=== PATIENT | female | born 1985 | race Caucasian/White ===

== ENCOUNTER → 2017-02-28 | Outpatient (CLI) | payer OTHER ==
[2017-03-01 14:03] LABS: Honeybee Venom IgE Class CLASS 0; Paper Wasp IgE <0.35 kU/L (<0.35); Paper Wasp IgE Class CLASS 0; White-Faced Hornet IgE <0.35 kU/L (<0.35); White-Faced Hornet IgE Class CLASS 0; Yellow Jacket IgE Class CLASS 0
== END | disposition home or self-care (01) ==
LOC: LABWHC1 15:52
PROVIDERS: ATTEND Allergy & Immunology
DX: T63.441A Toxic effect of venom of bees, accidental (unintentional), initial encounter (principal); J30.9 Allergic rhinitis, unspecified
CPT/HCPCS: 36415; 86003

== ENCOUNTER 2017-05-16 14:54 | Emergency (ER) | payer OTHER ==
[2017-05-16 15:16] VITALS: BP 144/87; PULSE 78; RESP 18; TEMP 98
--- NOTE | 2017-05-16 15:38 | ED ---
Upper Extremity HPI - General Chief Complaint: Extremity Injury, Upper Stated Complaint: Wrist Pain Time Seen by Provider: 05/16/17 15:19 Source: patient, RN notes reviewed Mode of arrival: ambulatory Limitations: no limitations - History of Present Illness Initial Comments: 32-year-old female presents emergency with left wrist pain. Patient states that she injured coughing elevate. Patient states that she missed the ball struck the ground. She is right-handed states that her upper hand bent when she is small. She complains of wrist pain along the ulnar aspect denies any paresthesias no weakness. Patient is right-hand dominant. - Related Data Home Medications Medication Instructions Recorded Confirmed Montelukast [Singulair] 10 mg PO HS 08/27/15 02/23/16 Albuterol Sulfate [Ventolin HFA] 1 - 2 puff INHALATION RT-Q4H PRN 02/12/1602/22 Mometasone Furoate [Asmanex] 1 puff INHALATION RT-HS 02/12/16 02/23/16 Naproxen [Naproxen] 500 mg PO BID PRN 02/12/16 02/23/16 Propranolol LA [Inderal LA] 80 mg PO HS 02/12/16 02/23/16 Omeprazole [PriLOSEC] 20 mg PO HS 02/23/16 02/23/16 SUMAtriptan SUCCINATE [Imitrex] 100 mg PO BID PRN 02/23/16 02/23/16 Previous Rx's Medication Instructions Recorded Meclizine [Antivert] 25 mg PO TID PRN #12 tab 02/23/16 Ibuprofen [Motrin] 600 mg PO Q8HR PRN #30 tab 05/16/17 Allergies Allergy/AdvReac Type Severity Reaction Status Date / Time adhesive tape Allergy Rash/Hives Verified 05/16/17 15:14 Review of Systems ROS Statement: Those systems with pertinent positive or pertinent negative responses have been documented in the HPI. ROS Other: All systems not noted in ROS Statement are negative. Past Medical History Past Medical History: Asthma Additional Past Medical History / Comment(s): migraines, hypoglycemia, varicose veins History of Any Multi-Drug Resistant Organisms: None Reported Past Surgical History: Tubal Ligation Past Anesthesia/Blood Transfusion Reactions: No Reported Reaction Past Psychological History: No Psychological Hx Reported Smoking Status: Never smoker Past Alcohol Use History: None Reported Past Drug Use History: None Reported - Past Family History Father History Unknown: Yes Family Medical History: Hypertension, Myocardial Infarction ([place]) Mother Family Medical History: Deep Vein Thrombosis (DVT), Pulmonary Embolus General Exam Limitations: no limitations General appearance: alert, in no apparent distress Respiratory exam: Present: normal lung sounds bilaterally. Absent: respiratory distress, wheezes, rales, rhonchi, stridor Cardiovascular Exam: Present: regular rate, normal rhythm, normal heart sounds. 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 Absent: motor sensory deficit Skin exam: Present: warm, dry, intact, normal color. Absent: rash Course Vital Signs 05/16/17 15:14 Temperature 98.0 F Pulse Rate 78 Respiratory 18 Rate Blood Pressure 144/87 O2 Sat by Pulse 95 Oximetry Medical Decision Making - Medical Decision Making 32-year-old female presented emergency from for left wrist injury. Patient has a left wrist sprain x-rays did not show any acute fracture. Patient be discharged with Simon wrap, Motrin. - Radiology Data Radiology results: report reviewed, image reviewed X-ray wrist no acute fracture. Disposition Clinical Impression: Left wrist sprain Disposition: HOME SELF-CARE Condition: Stable Instructions: Wrist Injury (ED) Additional Instructions: Please return to the Emergency Department if symptoms worsen or any other concerns. Prescriptions: Ibuprofen [Motrin] 600 mg PO Q8HR PRN #30 tab PRN Reason: Pain Referrals: Robert De Paz MD [Primary Care Provider] - 1-2 days Time of Disposition: 15:45
--- NOTE | 2017-05-16 15:42 | XR ---
EXAMINATION TYPE: XR wrist complete LT DATE OF EXAM: 05/16/2017 CLINICAL HISTORY: Wrist pain after golfing injury yesterday. TECHNIQUE: Frontal, lateral , scaphoid, and oblique images of the left wrist are obtained. COMPARISON: None FINDINGS: There is no acute fracture/dislocation evident in the left wrist. The joint spaces in the left wrist appear within normal limits. The overlying soft tissue appears unremarkable. IMPRESSION: There is no acute fracture or dislocation in the left wrist.
== END 2017-05-16 15:52 | disposition home or self-care (01) ==
LOC: EC 14:54
DX: S63.502A Unspecified sprain of left wrist, initial encounter (principal); J45.909 Unspecified asthma, uncomplicated; Z79.51 Long term (current) use of inhaled steroids; Z79.899 Other long term (current) drug therapy; Z91.09 Other allergy status, other than to drugs and biological substances; Z86.69 Personal history of other diseases of the nervous system and sense organs; W22.8XXA Striking against or struck by other objects, initial encounter; Y93.53 Activity, golf
CPT/HCPCS: 99283

== ENCOUNTER 2017-05-31 08:25 | Emergency (ER) | payer OTHER ==
[2017-05-31 08:45] VITALS: BP 147/70; PULSE 79; RESP 18; TEMP 98.8
--- NOTE | 2017-05-31 09:05 | ED ---
ENT HPI - General Chief complaint: Dental/Oral Stated complaint: Tooth Pain Time Seen by Provider: 05/31/17 08:48 Source: patient, RN notes reviewed Mode of arrival: ambulatory Limitations: no limitations - History of Present Illness Initial comments: 32-year-old female presents emergency Department chief complaint of right-sided dental pain, facial swelling. Patient states started this yesterday. She does have a bed to that she knows about. She states she has not seen a dentist in several years. Patient has fever, chills, neck pain, headache or dizziness. Denies any difficulty swallowing. - Related Data Home Medications Medication Instructions Recorded Confirmed Montelukast [Singulair] 10 mg PO HS 08/27/15 05/31/17 Albuterol Sulfate [Ventolin HFA] 1 - 2 puff INHALATION RT-Q4H PRN 02/12/1605/31 Mometasone Furoate [Asmanex] 1 puff INHALATION RT-HS 02/12/16 05/31/17 Naproxen [Naproxen] 500 mg PO BID PRN 02/12/16 05/31/17 Propranolol LA [Inderal LA] 80 mg PO HS 02/12/16 05/31/17 Omeprazole [PriLOSEC] 20 mg PO HS 02/23/16 05/31/17 SUMAtriptan SUCCINATE [Imitrex] 100 mg PO BID PRN 02/23/16 05/31/17 Previous Rx's Medication Instructions Recorded Meclizine [Antivert] 25 mg PO TID PRN #12 tab 02/23/16 Ibuprofen [Motrin] 600 mg PO Q8HR PRN #30 tab 05/16/17 Acetaminophen-Codeine 300-30mg 1 tab PO Q4H PRN #20 tablet 05/31/17 [Tylenol #3] Ibuprofen [Motrin] 600 mg PO Q8HR PRN #30 tab 05/31/17 Penicillin V Potassium [Pen Vee K] 500 mg PO QID #40 tablet 05/31/17 Allergies Allergy/AdvReac Type Severity Reaction Status Date / Time adhesive tape Allergy Rash/Hives Verified 05/31/17 08:50 Review of Systems ROS Statement: Those systems with pertinent positive or pertinent negative responses have been documented in the HPI. ROS Other: All systems not noted in ROS Statement are negative. Past Medical History Past Medical History: Asthma Additional Past Medical History / Comment(s): migraines, hypoglycemia, varicose veins History of Any Multi-Drug Resistant Organisms: None Reported Past Surgical History: Tubal Ligation Past Anesthesia/Blood Transfusion Reactions: No Reported Reaction Past Psychological History: No Psychological Hx Reported Smoking Status: Never smoker Past Alcohol Use History: None Reported Past Drug Use History: None Reported - Past Family History Father History Unknown: Yes Family Medical History: Hypertension, Myocardial Infarction ([place]) Mother Family Medical History: Deep Vein Thrombosis (DVT), Pulmonary Embolus General Exam Limitations: no limitations General appearance: alert, in no apparent distress Head exam: Present: atraumatic, normocephalic, normal inspection Eye exam: Present: normal appearance, PERRL, EOMI. Absent: scleral icterus, conjunctival injection, periorbital swelling ENT exam: Present: mucous membranes moist, TM's normal bilaterally, normal external ear exam. Absent: normal oropharynx (Right-sided facial swelling, there is a dental fracture and right lower aspect with no drainable abscess.) Neck exam: Present: normal inspection, full ROM. Absent: tenderness, meningismus, lymphadenopathy Respiratory exam: Present: normal lung sounds bilaterally. Absent: respiratory distress, wheezes, rales, rhonchi, stridor Cardiovascular Exam: Present: regular rate, normal rhythm, normal heart sounds. Absent: systolic murmur, diastolic murmur, rubs, gallop, clicks Course Vital Signs 05/31/17 08:43 Temperature 98.8 F Pulse Rate 79 Respiratory 18 Rate Blood Pressure 147/70 O2 Sat by Pulse 99 Oximetry Medical Decision Making - Medical Decision Making 32-year-old female presented for dental pain. Patient has had right-sided facial swelling discomfort. Concerns for dental abscess. Patient we placed on penicillin, Tylenol coating this time return parameters were discussed. She is advised that she needs to follow-up with dentist tomorrow. Disposition Clinical Impression: Fracture of tooth, Dental abscess Disposition: HOME SELF-CARE Condition: Stable Instructions: Dental Abscess (ED) Additional Instructions: Please return to the Emergency Department if symptoms worsen or any other concerns. Prescriptions: Acetaminophen-Codeine 300-30mg [Tylenol #3] 1 tab PO Q4H PRN #20 tablet PRN Reason: pain Ibuprofen [Motrin] 600 mg PO Q8HR PRN #30 tab PRN Reason: Pain Penicillin V Potassium [Pen Vee K] 500 mg PO QID #40 tablet Referrals: Robert De Paz MD [Primary Care Provider] - 1-2 days Time of Disposition: 09:04
== END 2017-05-31 09:15 | disposition home or self-care (01) ==
LOC: EC 08:25
DX: S02.5XXA Fracture of tooth (traumatic), initial encounter for closed fracture (principal); K04.7 Periapical abscess without sinus; J45.909 Unspecified asthma, uncomplicated; Z91.048 Other nonmedicinal substance allergy status; Z79.899 Other long term (current) drug therapy; X58.XXXA Exposure to other specified factors, initial encounter
CPT/HCPCS: 99282

== ENCOUNTER → 2017-12-30 | Outpatient (CLI) | payer OTHER ==
--- NOTE | 2017-12-30 23:05 | MR ---
EXAMINATION TYPE: MR brain wo/w cspine wo DATE OF EXAM: 12/30/2017 COMPARISON: Prior MRI brain February 23, 2016. Prior MRI cervical spine November 27, 2014. HISTORY: Dizzy, Blurry Vision, Left side weakness and numbness,Neck pain, since 2012 TECHNIQUE: Multiplanar, multisequence images of the brain and brainstem is performed without and with IV contras t, utilizing 8.5 mL intravenous Gadavist . Multiplanar, multisequence imaging of cervical spine is pe rformed without contrast. FINDINGS: Diffusion weighted images demonstrate no evidence of a recent infarct or other diffusion ab normality. There is no extra-axial fluid collection or significant white matter signal abnormality. The ventricular system and cisternal spaces are normal in size and appearance. The brain volume is age appropriate. Midline structures demonstrate normal morphology. The craniocervical junction appears within normal limits. Post contrast images demonstrate no abnormal enhancement. The dural venous sinuses appear pa tent. The visualized sinuses are clear and the globes are intact. No suspicious fluid signal in masto id air cells is present. IMPRESSION: Unremarkable study. No significant new or interval finding to account for patient's sympt oms. C-SPINE: FINDINGS: Sagittal images of the cervical spine show the craniocervical junction to remaining within normal limits. The cervical and upper thoracic spinal cord is normal in course, caliber, and signal. Vertebral alignment is anatomic. The vertebral body and intravertebral disk heights are normal. St able tiny posterior disc herniation C4-C5 and C5-C6 level are effacing the anterior thecal sac. Heman gioma transformation T2 level is redemonstrated. Axial images show the C2-C3 and C3-C4 levels remain within normal limits. Axial images at C4-C5 level show broad posterior disc protrusion with slightly more prominent left pa racentral/foraminal component effacing anterior thecal sac, bilateral neural foramina remain patent. Axial images at C5-C6 level shows broad-based posterior disc protrusion effacing anterior thecal sac once again with slightly more prominent left paracentral component, bilateral neural foramina remain patent. Axial images at C6-C7 and C7-T1 levels remain within normal limits. IMPRESSION: Slight worsening in disc herniations mid cervical spine.
== END | disposition home or self-care (01) ==
LOC: RADMRIMAIN 19:42
PROVIDERS: ATTEND Physician Assistant
DX: R51 Headache (principal); R42 Dizziness and giddiness; M54.2 Cervicalgia; Z91.040 Latex allergy status
CPT/HCPCS: 70553; 72141; A9581

== ENCOUNTER → 2018-03-01 | Outpatient (CLI) | payer OTHER ==
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
== END | disposition home or self-care (01) ==
LOC: RADUSWWP 15:03
PROVIDERS: ATTEND Family Medicine
DX: R10.84 Generalized abdominal pain (principal); Z91.048 Other nonmedicinal substance allergy status
CPT/HCPCS: 76856

== ENCOUNTER 2018-07-20 22:17 | Emergency (ER) | payer OTHER ==
[2018-07-20 22:30] VITALS: BP 146/94; PULSE 76; RESP 18; TEMP 98.5
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
== END 2018-07-20 23:09 | disposition home or self-care (01) ==
LOC: EC 22:17
DX: T23.102A Burn of first degree of left hand, unspecified site, initial encounter (principal); J45.909 Unspecified asthma, uncomplicated; Z79.51 Long term (current) use of inhaled steroids; Z79.899 Other long term (current) drug therapy; Z91.048 Other nonmedicinal substance allergy status; X10.1XXA Contact with hot food, initial encounter
CPT/HCPCS: 99283

== ENCOUNTER 2018-09-11 15:43 | Inpatient (IN) | payer OTHER ==
[2018-09-11] MEDS ORDERED: SODIUM CHLORIDE 0.9% 1,000 ML IV ONE (16:10)
--- NOTE | 2018-09-11 16:14 | ED ---
General Adult HPI - General Chief complaint: Chest Pain Stated complaint: SOB Time Seen by Provider: 09/11/18 15:59 Source: patient, RN notes reviewed, old records reviewed Mode of arrival: wheelchair Limitations: no limitations - History of Present Illness Initial comments: Patient is a 33-year-old female with complaints of chest pain, shortness of breath and dizziness for the past few days. Patient reports that it seemed to be worse today. Patient states that she has had a hysterectomy approximately one week ago by Dr. Coto. Patient states that she has had no significant abdominal pain. She reports that she's had a slight amount of pain with urination. She's had normal bowel habits. Patient reports that she has had a family history of blood clots but no personal history of blood clots. She is a nonsmoker. She denies any other significant medical history. - Related Data Home Medications Medication Instructions Recorded Confirmed Montelukast [Singulair] 10 mg PO HS 08/27/15 09/11/18 Albuterol Sulfate [Ventolin HFA] 1 - 2 puff INHALATION RT-Q4H PRN 02/12/1609/11 Omeprazole [PriLOSEC] 20 mg PO HS 02/23/16 09/11/18 Aspirin EC [Ecotrin Low Dose] 81 mg PO HS 07/20/18 09/11/18 Cetirizine HCl [Zyrtec] 10 mg PO HS 07/20/18 09/11/18 Cholecalciferol [Vitamin D3] 1,000 unit PO HS 07/20/18 09/11/18 Rosuvastatin [Crestor] 20 mg PO HS 07/20/18 09/11/18 Fluticasone/Salmeterol [Airduo 2 puff INHALATION RT-BID 09/11/18 09/11/18 Respiclick 113-14 Mcg] Hydrocodone/Acetaminophen [[place] 1 tab PO Q4HR PRN 09/11/18 09/11/18 5-325] Ibuprofen [Motrin] 600 mg PO Q6HR PRN 09/11/18 09/11/18 SUMAtriptan SUCCINATE [Imitrex] 100 mg PO DAILY PRN 09/11/18 09/11/18 Allergies Allergy/AdvReac Type Severity Reaction Status Date / Time adhesive tape Allergy Rash/Hives Verified 09/11/18 16:41 Review of Systems ROS Statement: Those systems with pertinent positive or pertinent negative responses have been documented in the HPI. ROS Other: All systems not noted in ROS Statement are negative. Past Medical History Past Medical History: Asthma Additional Past Medical History / Comment(s): migraines, hypoglycemia, varicose veins History of Any Multi-Drug Resistant Organisms: None Reported Past Surgical History: Hysterectomy, Tubal Ligation Past Anesthesia/Blood Transfusion Reactions: No Reported Reaction Past Psychological History: Anxiety Smoking Status: Never smoker Past Alcohol Use History: Rare Past Drug Use History: None Reported - Past Family History Father History Unknown: Yes Family Medical History: Hypertension, Myocardial Infarction (NM) Mother Family Medical History: Deep Vein Thrombosis (DVT), Pulmonary Embolus General Exam - General Exam Comments Initial Comments: 33-year-old female. Patient appears somewhat weak, fatigued.. Limitations: no limitations General appearance: alert, in no apparent distress Head exam: Present: atraumatic, normocephalic, normal inspection Eye exam: Present: normal appearance, PERRL, EOMI. Absent: scleral icterus, conjunctival injection, periorbital swelling ENT exam: Present: normal exam, mucous membranes moist Neck exam: Present: normal inspection. Absent: tenderness, meningismus, lymphadenopathy Respiratory exam: Present: normal lung sounds bilaterally. Absent: respiratory distress, wheezes, rales, rhonchi, stridor Cardiovascular Exam: Present: regular rate, normal rhythm, normal heart sounds. Absent: systolic murmur, diastolic murmur, rubs, gallop, clicks GI/Abdominal exam: Present: soft, normal bowel sounds. Absent: distended, tenderness, guarding, rebound, rigid Extremities exam: Present: normal inspection, full ROM, normal capillary refill. Absent: tenderness, pedal edema, joint swelling, calf tenderness Back exam: Present: normal inspection Neurological exam: Present: alert, oriented X3, CN II-XII intact Psychiatric exam: Present: normal affect, normal mood Course Vital Signs 09/11/18 09/11/18 15:44 19:00 Temperature 98.3 F 98.3 F Pulse Rate 101 H 87 Respiratory 18 18 Rate Blood Pressure 161/96 127/85 O2 Sat by Pulse 100 100 Oximetry - Reevaluation(s) Reevaluation #1: 09/11/18 18:45 Patient was reevaluated. Patient is continually short of breath on exertion. Patient was informed of PEs. Started on high intensity heparin. EKG Findings - EKG Comments: EKG Findings:: EKG shows normal sinus rhythm, minimal voltage criteria for LVH may be normal variant. Borderline EKG. Ventricular rate of 85 beats were minute period. Intervals 144 ms. QRS duration 86. QT QTc is 4368/437 ms. Medical Decision Making - Medical Decision Making Patient is a 33-year-old female 1 week post hysterectomy by Dr. Coto. She presents today with shortness of breath dizziness on exertion and chest pain. Patient's labwork was reviewed including EKG. EKG was negative for any acute changes. Troponin was normal. D-dimer significantly elevated at [address] chest PE was completed. There is evidence of multiple bilateral pulmonary emboli. No evidence of right heart strain. EKG BNP and troponin are all negative. Patient was started on high intensity heparin. Ultrasound was completed of the lower extremities which is negative for DVT. At this time Patient will be admitted under Dr. De Paz. After Ross, discussed the case with Dr. De Paz. - Lab Data Result diagrams: 09/11/18 16:20 09/11/18 16:20 Lab Results 09/11/18 09/11/18 09/11/18 Range/Units 16:20 16:20 16:20 WBC 7.6 (3.8-10.6) k/uL RBC 4.57 (3.80-5.40) m/uL Hgb 12.9 (11.4-16.0) gm/dL Hct 37.8 (34.0-46.0) % MCV 82.8 (80.0-100.0) fL MCH 28.2 (25.0-35.0) pg MCHC 34.0 (31.0-37.0) g/dL RDW 14.2 (11.5-15.5) % Plt Count 209 (150-450) k/uL Neutrophils % 74 % Lymphocytes % 17 % Monocytes % 4 % Eosinophils % 2 % Basophils % 1 % Neutrophils # 5.6 (1.3-7.7) k/uL Lymphocytes # 1.3 (1.0-4.8) k/uL Monocytes # 0.3 (0-1.0) k/uL Eosinophils # 0.2 (0-0.7) k/uL Basophils # 0.1 (0-0.2) k/uL PT (9.0-12.0) sec INR (<1.2) APTT (22.0-30.0) sec D-Dimer (<0.60) mg/L FEU Sodium 141 (137-145) mmol/L Potassium 3.7 (3.5-5.1) mmol/L Chloride 106 (98-107) mmol/L Carbon Dioxide 27 (22-30) mmol/L Anion Gap 8 mmol/L BUN 10 (7-17) mg/dL Creatinine 0.63 (0.52-1.04) mg/dL Est GFR (CKD-EPI)AfAm >90 (>60 ml/min/1.73 sqM) Est GFR (CKD-EPI)NonAf >90 (>60 ml/min/1.73 sqM) Glucose 90 (74-99) mg/dL Calcium 9.9 (8.4-10.2) mg/dL Magnesium 1.8 (1.6-2.3) mg/dL Total Bilirubin 0.6 (0.2-1.3) mg/dL AST 24 (14-36) U/L ALT 25 (9-52) U/L Alkaline Phosphatase 61 (38-126) U/L Total Creatine Kinase 52 (30-135) U/L CK-MB (CK-2) <0.2 (0.0-2.4) ng/mL CK-MB (CK-2) Rel Index Troponin I <0.012 (0.000-0.034) ng/mL NT-Pro-B Natriuret Pep pg/mL Total Protein 7.3 (6.3-8.2) g/dL Albumin 4.5 (3.5-5.0) g/dL Urine Color Urine Appearance (Clear) Urine pH (5.0-8.0) Ur Specific [place] (1.001-1.035) Urine Protein (Negative) Urine Glucose (UA) (Negative) Urine Ketones (Negative) Urine Blood (Negative) Urine Nitrite (Negative) Urine Bilirubin (Negative) Urine Urobilinogen (<2.0) mg/dL Ur Leukocyte Esterase (Negative) 09/11/18 09/11/18 09/11/18 Range/Units 16:20 16:20 18:45 WBC (3.8-10.6) k/uL RBC (3.80-5.40) m/uL Hgb (11.4-16.0) gm/dL Hct (34.0-46.0) % MCV (80.0-100.0) fL MCH (25.0-35.0) pg MCHC (31.0-37.0) g/dL RDW (11.5-15.5) % Plt Count (150-450) k/uL Neutrophils % % Lymphocytes % % Monocytes % % Eosinophils % % Basophils % % Neutrophils # (1.3-7.7) k/uL Lymphocytes # (1.0-4.8) k/uL Monocytes # (0-1.0) k/uL Eosinophils # (0-0.7) k/uL Basophils # (0-0.2) k/uL PT 9.8 (9.0-12.0) sec INR 0.9 (<1.2) APTT 22.3 (22.0-30.0) sec D-Dimer 7.57 H (<0.60) mg/L FEU Sodium (137-145) mmol/L Potassium (3.5-5.1) mmol/L Chloride (98-107) mmol/L Carbon Dioxide (22-30) mmol/L Anion Gap mmol/L BUN (7-17) mg/dL Creatinine (0.52-1.04) mg/dL Est GFR (CKD-EPI)AfAm (>60 ml/min/1.73 sqM) Est GFR (CKD-EPI)NonAf (>60 ml/min/1.73 sqM) Glucose (74-99) mg/dL Calcium (8.4-10.2) mg/dL Magnesium (1.6-2.3) mg/dL Total Bilirubin (0.2-1.3) mg/dL AST (14-36) U/L ALT (9-52) U/L Alkaline Phosphatase (38-126) U/L Total Creatine Kinase (30-135) U/L CK-MB (CK-2) (0.0-2.4) ng/mL CK-MB (CK-2) Rel Index Troponin I (0.000-0.034) ng/mL NT-Pro-B Natriuret Pep 56 pg/mL Total Protein (6.3-8.2) g/dL Albumin (3.5-5.0) g/dL Urine Color Yellow Urine Appearance Clear (Clear) Urine pH 7.0 (5.0-8.0) Ur Specific [place] 1.012 (1.001-1.035) Urine Protein Negative (Negative) Urine Glucose (UA) Negative (Negative) Urine Ketones Negative (Negative) Urine Blood Negative (Negative) Urine Nitrite Negative (Negative) Urine Bilirubin Negative (Negative) Urine Urobilinogen <2.0 (<2.0) mg/dL Ur Leukocyte Esterase Negative (Negative) - Radiology Data Radiology results: report reviewed Chest x-ray is normal. No changes. CT of the chest shows multiple bilateral lower lobar pulmonary emboli more in the left side. This is a change compared old exam. The exam was discussed with myself at 6 PM. Ultrasound Doppler lower extremities bilaterally is negative for DVT. Disposition Clinical Impression: Bilateral pulmonary embolism Disposition: ADMITTED IP TO THIS [facility] Condition: Stable Is patient prescribed a controlled substance at d/c from ED?: No Referrals: Robert De Paz MD [Primary Care Provider] - 1-2 days Time of Disposition: 19:44
[2018-09-11 16:32] LABS: Basophils # (A) 0.1 k/uL (0-0.2); Basophils % (A) 1 %; Eosinophils # (A) 0.2 k/uL (0-0.7); Eosinophils % (A) 2 %; HCT 37.8 % (34.0-46.0); HGB 12.9 gm/dL (11.4-16.0); Lymphocytes # (A) 1.3 k/uL (1.0-4.8); Lymphocytes % (A) 17 %; MCH 28.2 pg (25.0-35.0); MCV 82.8 fL (80.0-100.0); Monocytes # (A) 0.3 k/uL (0-1.0); Monocytes % (A) 4 %; Neutrophils # (A) 5.6 k/uL (1.3-7.7); Neutrophils % (A) 74 %; Platelet Count 209 k/uL (150-450); RBC 4.57 m/uL (3.80-5.40); RDW 14.2 % (11.5-15.5); WBC 7.6 k/uL (3.8-10.6)
[2018-09-11 16:42] LABS: ALT 25 U/L (9-52); AST 24 U/L (14-36); Albumin 4.5 g/dL (3.5-5.0); Alkaline Phosphatase 61 U/L (38-126); Anion Gap 8 mmol/L; Blood Urea Nitrogen 10 mg/dL (7-17); Calcium 9.9 mg/dL (8.4-10.2); Carbon Dioxide 27 mmol/L (22-30); Chloride 106 mmol/L (98-107); Glucose 90 mg/dL (74-99); Magnesium 1.8 mg/dL (1.6-2.3); Potassium 3.7 mmol/L (3.5-5.1); Sodium 141 mmol/L (137-145); Total Bilirubin 0.6 mg/dL (0.2-1.3); Total Protein 7.3 g/dL (6.3-8.2)
[2018-09-11 16:43] LABS: Creatine Kinase 52 U/L (30-135)
[2018-09-11 16:50] LABS: INR 0.9 (<1.2); Partial Thromboplastin Time 22.3 sec (22.0-30.0); Prothrombin Time 9.8 sec (9.0-12.0)
[2018-09-11 16:56] LABS: Creatine Kinase MB <0.2 ng/mL (0.0-2.4); Troponin I <0.012 ng/mL (0.000-0.034)
--- NOTE | 2018-09-11 16:56 | XR ---
EXAMINATION TYPE: XR chest 2V DATE OF EXAM: 09/11/2018 COMPARISON: 02/12/2016 HISTORY: Chest pain TECHNIQUE: Frontal and lateral views of the chest are obtained. FINDINGS: Heart and mediastinum are normal. Lungs are clear. Diaphragm is normal. Bony thorax appear s normal. IMPRESSION: Normal chest. No change.
[2018-09-11 17:00] LABS: D-Dimer 7.57 mg/L FEU (<0.60)
[2018-09-11] MEDS ORDERED: HEPARIN SODIUM,PORCINE 5,000 UNIT/ML 1 ML VIAL IV PRN (18:01)
[2018-09-11] MEDS ORDERED: HEPARIN SODIUM,PORCINE 10,000 UNIT/ML 1 ML VIAL IV ONE (18:01)
--- NOTE | 2018-09-11 18:05 | CT ---
EXAMINATION TYPE: CT chest angio for PE DATE OF EXAM: 09/11/2018 COMPARISON: 08/27/2015 HISTORY: Shortness of breath. Post Op hysterectomy [address] DLP: 394.6 mGycm Automated exposure control for dose reduction was used. CONTRAST: CT Chest for pulmonary embolism performed with with IV Contrast, patient injected with 100 mL of Isov ue 370. There are 3-D post processed images. FINDINGS: There is subsegmental atelectasis at the right posterior lung base. Heart size is normal. There is no pericardial effusion. Lungs are clear of consolidation. There is no evidence of a pulmonary mass. There is no mediastinal adenopathy. There is no sign of aortic aneurysm or dissection. There are mult iple filling defects in the left lower lobe pulmonary artery. There are filling defects in the right lower lobe posterior basal segment pulmonary artery. The thoracic vertebra appear intact. I see no bony destructive process. Heart size is normal without evidence of right ventricle enlargement or septal deviation. IMPRESSION: Multiple bilateral lower lobe pulmonary emboli and more on the left side. This is a change compared t o old exam. This exam was discussed with the emergency room PA at 6:00 PM.
[2018-09-11 19:02] LABS: Appearance,Urine Clear (Clear); Bilirubin,Urine Negative (Negative); Blood,Urine Negative (Negative); Color,Urine Yellow; Glucose,Urine (UA) Negative (Negative); Ketones,Urine Negative (Negative); Leukocyte Esterase,Urine Negative (Negative); Nitrite,Urine Negative (Negative); Protein,Urine Negative (Negative); Specific Gravity,Urine 1.012 (1.001-1.035); Urobilinogen,Urine <2.0 mg/dL (<2.0)
[2018-09-11] MEDS: HEPARIN SOD,PORK IN 0.45% NACL 25,000 UNIT in 0.45% NACL 1 250ML.BAG IV SCH (19:05)
[2018-09-11] MEDS: SODIUM CHLORIDE 0.9% 1,000 ML IV SCH (19:12)
--- NOTE | 2018-09-11 19:24 | US ---
EXAMINATION TYPE: US venous doppler duplex LE BI DATE OF EXAM: 09/11/2018 6:14 PM COMPARISON: NONE CLINICAL HISTORY: Pain. PE SIDE PERFORMED: Bilateral TECHNIQUE: The lower extremity deep venous system is examined utilizing real time linear array sonog nael with graded compression, doppler sonography and color-flow sonography. VESSELS IMAGED: External Iliac Vein (EIV) Common Femoral Vein Deep Femoral Vein Greater Saphenous Vein * Femoral Vein Popliteal Vein Small Saphenous Vein * Proximal Calf Veins (* superficial vessels) Right Leg: Negative for DVT Left Leg: Negative for DVT No evidence of DVT bilateral legs. IMPRESSION: Normal bilateral leg duplex venous sonogram.
[2018-09-11] MEDS ORDERED: IBUPROFEN 400 MG TAB PO PRN (19:45)
[2018-09-11] MEDS ORDERED: ACETAMINOPHEN TAB 325 MG TAB PO PRN (19:45)
[2018-09-11] MEDS ORDERED: ONDANSETRON 4 MG/2 ML VIAL IVP PRN (19:45)
[2018-09-11] MEDS ORDERED: NALOXONE 0.4 MG/ML 1 ML VIAL IV PRN (19:45)
[2018-09-11 21:02] VITALS: BMI 33.6
[2018-09-11] MEDS: MORPHINE SULFATE 4 MG/ML SYRINGE IV PRN (21:17)
[2018-09-11] MEDS ORDERED: SUMAtriptan SUCCINATE 50 MG TAB PO PRN (21:54)
[2018-09-11] MEDS ORDERED: ALBUTEROL NEBULIZED 2.5 MG/3 ML INHALATION PRN (21:54)
[2018-09-11] MEDS: PANTOPRAZOLE 40 MG TABLET PO SCH (22:52)
[2018-09-11] MEDS: VERAPAMIL SR 120 MG TABLET.ER PO SCH (22:52)
[2018-09-11] MEDS: MONTELUKAST 10 MG TAB PO SCH (22:52)
[2018-09-11] MEDS: LORATADINE 10 MG TAB PO SCH (22:52)
[2018-09-11] MEDS: Acetaminophen-Codeine 300-30mg TAB PO PRN (22:57)
[2018-09-12] MEDS: MORPHINE SULFATE 4 MG/ML SYRINGE IV PRN ×2 (02:11→20:57)
[2018-09-12] MEDS: SODIUM CHLORIDE 0.9% 1,000 ML IV SCH ×3 (02:13→22:11)
[2018-09-12] MEDS: Acetaminophen-Codeine 300-30mg TAB PO PRN (08:52)
[2018-09-12] MEDS ORDERED: PANTOPRAZOLE 40 MG/10 ML VIAL IV SCH (09:00)
[2018-09-12] MEDS: FLUTICASONE INHALATION SCH (09:16)
[2018-09-12] MEDS: SALMETEROL INHALATION SCH (09:16)
[2018-09-12 09:36] LABS: Basophils % (A) 1 %; Eosinophils # (A) 0.3 k/uL (0-0.7); Eosinophils % (A) 4 %; HCT 34.4 % (34.0-46.0); HGB 11.5 gm/dL (11.4-16.0); Lymphocytes # (A) 1.7 k/uL (1.0-4.8); Lymphocytes % (A) 29 %; MCH 28.3 pg (25.0-35.0); MCHC 33.3 g/dL (31.0-37.0); MCV 84.8 fL (80.0-100.0); Mean Platelet Volume 6.8; Monocytes # (A) 0.3 k/uL (0-1.0); Monocytes % (A) 4 %; Neutrophils # (A) 3.6 k/uL (1.3-7.7); Neutrophils % (A) 60 %; Platelet Count 206 k/uL (150-450); RBC 4.05 m/uL (3.80-5.40); RDW 14.5 % (11.5-15.5); WBC 5.9 k/uL (3.8-10.6)
[2018-09-12] MEDS ORDERED: IBUPROFEN 600 MG TAB PO PRN (11:52)
[2018-09-12] MEDS: HEPARIN SOD,PORK IN 0.45% NACL 25,000 UNIT in 0.45% NACL 1 250ML.BAG IV SCH (12:34)
--- NOTE | 2018-09-12 13:35 | PN ---
PROGRESS NOTE DATE OF SERVICE: 09/12/2018 CHIEF COMPLAINT: Bilateral pulmonary emboli. HISTORY OF PRESENT ILLNESS: This lady is doing better. She is much less short of breath. PHYSICAL EXAM: Breath sounds are fairly good on both sides with no rales or rhonchi. The cardiac exam is normal. The legs are normal. IMPRESSION: Status post bilateral pulmonary emboli. PLAN: Continue with heparin at this time. MMODL / IJN: [id number] /
--- NOTE | 2018-09-12 15:06 | HP ---
HISTORY AND PHYSICAL ADMITTING SUMMARY: CHIEF COMPLAINT: Shortness of breath and chest discomfort. HISTORY OF PRESENT ILLNESS: This is the first known admission for this 33-year-old white female. About 3 weeks ago, she underwent a hysterectomy (elsewhere). In the last day or 2, she started with increasing shortness of breath with some dizziness and some tightness in the chest. She had no fever, chills, pleurisy, hemoptysis, but she came into the emergency room, where D-dimer is elevated. She had bilateral pulmonary emboli. REVIEW OF SYSTEMS: She has had no other complaints or problems. She has had no palpitations, syncope, orthopnea, cancer. past surgical history, family history, personal and social histories are all otherwise unremarkable and noncontributory other than hysterectomy. She has had tubal ligation. She is on omeprazole, Zyrtec, Crestor, aspirin, Symbicort and Crestor, there is also singular. She does not smoke. She is not allergic to any medication. PHYSICAL EXAM: Blood pressure 120/80 with a pulse of 104, respirations of 40 and she is afebrile. GENERAL: She appeared to be slightly pale, overweight, in no acute distress. Skin was dry and lymph nodes are not enlarged. Head, ears, eyes, nose, mouth, and throat were normal. Neck veins are not distended. Thyroid is not enlarged. Chest is clear. No rales, rhonchi or rubs. Cardiac exam is normal. Abdomen is soft, nontender. EXTREMITIES: Normal. Neurologically, she is intact. IMPRESSION: Bilateral pulmonary emboli. PLAN: 1. Bed rest. 2. IV fluids. 3. Heparin. 4. Anticoagulate for 6 months. MMODL / IJN: [id number] /
[2018-09-12] MEDS: ASPIRIN 81 MG PO SCH (20:08)
--- NOTE | 2018-09-12 20:41 | US ---
EXAMINATION TYPE: US pelvic complete DATE OF EXAM: 09/12/2018 COMPARISON: NONE CLINICAL HISTORY: left sided abdominal pain post hysterectomy day 6. Patient had partial hysterectomy x6 days ago pain. Has a PE on blood thinners past a blood clot vaginally. TECHNIQUE: Transabdominal (TA). Transabdominal sonographic images of the pelvis were acquired. : EXAM MEASUREMENTS: Uterus: Surgically absent cm Endometrial Stripe: Surgically absent cm Right Ovary: 2.9 x 2.1 x 2.6 cm Left Ovary: 2.9 x 1.7 x 2.3 cm 1. Uterus: Surgically absent 2. Endometrium: Surgically absent 3. Right Ovary: Follicle seen. 4. Left Ovary: Follicle sen. 5. Bilateral Adnexa: wnl 6. Posterior cul-de-sac: wnl IMPRESSION: Hysterectomy. No solid or cystic pelvic mass identified. No free fluid.
[2018-09-12 20:49] LABS: Basophils # (A) 0.1 k/uL (0-0.2); Basophils % (A) 1 %; Eosinophils # (A) 0.2 k/uL (0-0.7); Eosinophils % (A) 4 %; HCT 36.2 % (34.0-46.0); HGB 11.7 gm/dL (11.4-16.0); Lymphocytes # (A) 1.5 k/uL (1.0-4.8); Lymphocytes % (A) 24 %; MCH 27.4 pg (25.0-35.0); MCHC 32.3 g/dL (31.0-37.0); Mean Platelet Volume 6.3; Monocytes # (A) 0.3 k/uL (0-1.0); Monocytes % (A) 4 %; Neutrophils # (A) 4.1 k/uL (1.3-7.7); Neutrophils % (A) 66 %; Platelet Count 200 k/uL (150-450); RBC 4.27 m/uL (3.80-5.40); RDW 14.3 % (11.5-15.5); WBC 6.2 k/uL (3.8-10.6)
[2018-09-12] MEDS: LORATADINE 10 MG TAB PO SCH (20:57)
[2018-09-12] MEDS: PANTOPRAZOLE 40 MG TABLET PO SCH (20:57)
[2018-09-12] MEDS: VERAPAMIL SR 120 MG TABLET.ER PO SCH (20:57)
[2018-09-12] MEDS: MONTELUKAST 10 MG TAB PO SCH (20:57)
[2018-09-13] MEDS: HEPARIN SOD,PORK IN 0.45% NACL 25,000 UNIT in 0.45% NACL 1 250ML.BAG IV SCH ×2 (01:49→19:55)
[2018-09-13] MEDS: Acetaminophen-Codeine 300-30mg TAB PO PRN ×2 (04:40→17:30)
--- NOTE | 2018-09-13 05:47 | P.OBCN ---
History of Present Illness Consult date: 09/13/18 Requesting physician: Robert De Paz Reason for consult: other (Vaginal bleeding, 9 days postop from hysterectomy) Chief complaint: Shortness of breath, incidental vaginal bleeding History of present illness: This is a 33-year-old female 4 para 4 who recently had a laparoscopic hysterectomy with Dr. Coto at [facility] on 09/04/2018. She was admitted with bilateral pulmonary embolism and was started on heparin. After starting the heparin, she passed a egg-sized blood clot vaginally and did have some pinkish watery discharge following that. She also had some increased abdominal cramping at that time. Currently she denies any vaginal bleeding or pain in her lower abdomen. She is scheduled to see Dr. Coto tomorrow for a postoperative check. Review of Systems Gastrointestinal: Denies abdominal pain Genitourinary: Reports abnormal vaginal bleeding (No current vaginal bleeding), Denies pelvic pain Past Medical History Past Medical History: Asthma Additional Past Medical History / Comment(s): migraines, hypoglycemia, varicose veins History of Any Multi-Drug Resistant Organisms: None Reported Past Surgical History: Hysterectomy, Tubal Ligation Past Anesthesia/Blood Transfusion Reactions: No Reported Reaction Smoking Status: Never smoker - Past Family History Father History Unknown: Yes Family Medical History: Hypertension, Myocardial Infarction (MS) Mother Family Medical History: Deep Vein Thrombosis (DVT), Pulmonary Embolus Medications and Allergies Home Medications Medication Instructions Recorded Confirmed Type Montelukast [Singulair] 10 mg PO HS 08/27/15 09/11/18 History Albuterol Sulfate [Ventolin HFA] 1 - 2 puff INHALATION RT-Q4H PRN 02/12/1609/11 History Omeprazole [PriLOSEC] 20 mg PO HS 02/23/16 09/11/18 History Aspirin EC [Ecotrin Low Dose] 81 mg PO HS 07/20/18 09/11/18 History Cetirizine HCl [Zyrtec] 10 mg PO HS 07/20/18 09/11/18 History Cholecalciferol [Vitamin D3] 1,000 unit PO HS 07/20/18 09/11/18 History Rosuvastatin [Crestor] 20 mg PO HS 07/20/18 09/11/18 History Fluticasone/Salmeterol [Airduo 2 puff INHALATION RT-BID 09/11/18 09/11/18 History Respiclick 113-14 Mcg] Hydrocodone/Acetaminophen [[place] 1 tab PO Q4HR PRN 09/11/18 09/11/18 History 5-325] Ibuprofen [Motrin] 600 mg PO Q6HR PRN 09/11/18 09/11/18 History SUMAtriptan SUCCINATE [Imitrex] 100 mg PO DAILY PRN 09/11/18 09/11/18 History Verapamil HCl [[place]] 120 mg PO HS 09/11/18 09/11/18 History Allergies Allergy/AdvReac Type Severity Reaction Status Date / Time adhesive tape Allergy Rash/Hives Verified 09/11/18 16:41 Exam Osteopathic Statement: *. No significant issues noted on an osteopathic structural exam other than those noted in the History and Physical/Consult. Vital Signs Temp Pulse Pulse Resp BP Pulse Ox 09/13/18 04:00 97.7 F 83 18 114/64 97 09/13/18 03:59 18 09/13/18 00:00 85 18 127/85 98 09/12/18 21:12 84 09/12/18 21:05 84 99 09/12/18 20:00 97.5 F L 83 18 136/93 99 09/12/18 16:10 153/93 09/12/18 16:00 97.5 F L 73 18 170/96 96 09/12/18 12:09 97.6 F 79 18 118/79 97 09/12/18 12:00 18 09/12/18 11:15 97.5 F L 73 18 118/72 96 09/12/18 08:55 16 09/12/18 08:21 98 F 84 17 122/77 98 09/12/18 08:00 17 Intake and Output 09/12/18 09/12/18 09/13/18 14:59 22:59 06:59 Intake Total 828.857 240 Output Total 800 Balance 828.857 -560 Intake: Intake, IV Titration 126.857 Amount Heparin Sod,Pork in 0.45% 126.857 NaCl 25,000 unit In 0.45 % NaCl 1 250ml.bag @ 18 UNITS/KG/HR 16 mls/hr IV .[id number] Rx#: [id number] Oral 702 240 Output: Urine 800 Other: # Voids 1 Exam deferred since she is no longer bleeding or having pain Results Result Diagrams: 09/12/18 20:19 09/11/18 16:20 Abnormal Lab Results - Last 24 Hours (Table) 09/12/18 Range/Units 09:10 APTT 53.8 H (22.0-30.0) sec Comments: Pelvic ultrasound showed no free fluid and normal ovaries. Assessment and Plan (1) Postoperative vaginal bleeding following genitourinary procedure Current Visit: Yes Status: Acute Code(s): N99.820 - POSTPROC HEMOR OF A SYS ORG FOLLOWING A SYS PROCEDURE SNOMED Code(s): 422106261 (2) Bilateral pulmonary embolism Current Visit: Yes Status: Acute Code(s): I26.99 - OTHER PULMONARY EMBOLISM WITHOUT ACUTE COR PULMONALE SNOMED Code(s): 96568053 Plan: Advised her that the bleeding was most likely due to some postoperative blood clot sitting in her lower abdomen and the heparin then turned blood enough that the clot passed through the vaginal cuff. Since her ultrasound shows no current free fluid and she is no longer bleeding, no further intervention is needed at this time. I have instructed her to follow up with Dr. Coto as scheduled. If any change in status while she is still admitted, please reconsult.
[2018-09-13 06:12] LABS: Basophils # (A) 0.1 k/uL (0-0.2); Basophils % (A) 1 %; Eosinophils # (A) 0.3 k/uL (0-0.7); Eosinophils % (A) 3 %; HCT 38.1 % (34.0-46.0); Lymphocytes % (A) 23 %; MCH 26.6 pg (25.0-35.0); MCHC 31.4 g/dL (31.0-37.0); MCV 84.7 fL (80.0-100.0); Mean Platelet Volume 6.3; Monocytes # (A) 0.3 k/uL (0-1.0); Monocytes % (A) 4 %; Neutrophils # (A) 5.8 k/uL (1.3-7.7); Neutrophils % (A) 67 %; Platelet Count 260 k/uL (150-450); RDW 14.4 % (11.5-15.5); WBC 8.7 k/uL (3.8-10.6)
[2018-09-13] MEDS: RIVAROXABAN 15 MG TAB PO SCH (18:10)
[2018-09-13] MEDS: SALMETEROL INHALATION SCH ×2 (19:51→19:52)
[2018-09-13] MEDS: FLUTICASONE INHALATION SCH ×2 (19:51→19:52)
[2018-09-13] MEDS: SODIUM CHLORIDE 0.9% 1,000 ML IV SCH ×2 (19:52→19:53)
[2018-09-13] MEDS: MONTELUKAST 10 MG TAB PO SCH (20:05)
[2018-09-13] MEDS: VERAPAMIL SR 120 MG TABLET.ER PO SCH (20:05)
[2018-09-13] MEDS: LORATADINE 10 MG TAB PO SCH (20:05)
[2018-09-13] MEDS: PANTOPRAZOLE 40 MG TABLET PO SCH (20:05)
[2018-09-13] MEDS: ASPIRIN 81 MG PO SCH (20:14)
[2018-09-14] MEDS: MORPHINE SULFATE 4 MG/ML SYRINGE IV PRN (00:06)
[2018-09-14] MEDS: SALMETEROL INHALATION SCH (00:50)
[2018-09-14] MEDS: FLUTICASONE INHALATION SCH (00:50)
[2018-09-14 06:04] VITALS: TEMP 97.9
[2018-09-14 06:33] LABS: Basophils # (A) 0.1 k/uL (0-0.2); Basophils % (A) 1 %; Eosinophils # (A) 0.3 k/uL (0-0.7); Eosinophils % (A) 4 %; HCT 35.8 % (34.0-46.0); HGB 11.4 gm/dL (11.4-16.0); Lymphocytes # (A) 1.6 k/uL (1.0-4.8); Lymphocytes % (A) 25 %; MCH 26.9 pg (25.0-35.0); MCHC 31.8 g/dL (31.0-37.0); MCV 84.7 fL (80.0-100.0); Mean Platelet Volume 6.9; Monocytes # (A) 0.3 k/uL (0-1.0); Monocytes % (A) 5 %; Neutrophils # (A) 4.1 k/uL (1.3-7.7); Neutrophils % (A) 64 %; Platelet Count 224 k/uL (150-450); RBC 4.23 m/uL (3.80-5.40); RDW 14.5 % (11.5-15.5); WBC 6.3 k/uL (3.8-10.6)
[2018-09-14] MEDS: RIVAROXABAN 15 MG TAB PO SCH (06:46)
[2018-09-14 08:04] VITALS: RESP 16
[2018-09-14 12:31] VITALS: BP 131/83; PULSE 81
--- NOTE | 2018-09-14 17:32 | PN ---
PROGRESS NOTE CHIEF COMPLAINT: Pulmonary emboli. HISTORY OF PRESENT ILLNESS: This lady is doing a little bit better and is a little bit less short of breath. PHYSICAL EXAMINATION: Breath sounds are fairly clear on both sides and cardiac exam is normal. Abdomen is soft, nontender. IMPRESSION: 1. Status post pulmonary emboli. 2. Vaginal bleeding. PLAN: She has been seen by Gynecology and she has had no further bleeding. We are trying to see if we can get her set up with one of the novel anticoagulants so that she can be discharged tomorrow. MMODL / IJN: [id number] /
--- NOTE | 2018-09-14 19:59 | DS ---
DISCHARGE SUMMARY CHIEF COMPLAINT: Shortness of breath. HISTORY OF PRESENT ILLNESS AND PHYSICAL EXAM: Details of this lady's history and physical can be found in the initial workup. LABORATORY STUDIES: While she was in the hospital, she had laboratory studies, details of which can be found in the laboratory section of chart. COURSE IN HOSPITAL: After admission, she was placed on bedrest, started on intravenous fluids and placed on heparin. Shortness of breath improved. She had no other hemodynamic problems, fever or chills, etc. It was felt she could go home on the and she will be sent home on rivaroxaban 50 mg twice a day. We will see her in the office in few days. FINAL DIAGNOSES: 1. Bilateral pulmonary emboli. 2. Status post hysterectomy. 3. Vaginal bleeding. OPERATIONS: None. CONSULTATION: Gynecology. She is improved. MMELIEZERL / LOIN: [id number] /
== END 2018-09-14 13:18 | disposition home or self-care (01) | DRG 176 ==
LOC: EC 15:43 → 3SCARD 19:58
PROVIDERS: ADMIT Family Medicine; ATTEND Family Medicine
DX: I26.99 Other pulmonary embolism without acute cor pulmonale (principal); N99.820 Postprocedural hemorrhage of a genitourinary system organ or structure following a genitourinary system procedure; J45.909 Unspecified asthma, uncomplicated; Z79.899 Other long term (current) drug therapy; Z82.49 Family history of ischemic heart disease and other diseases of the circulatory system; Z90.710 Acquired absence of both cervix and uterus; E66.3 Overweight; Z68.33 Body mass index [BMI] 33.0-33.9, adult; Z79.82 Long term (current) use of aspirin; Z79.51 Long term (current) use of inhaled steroids
CPT/HCPCS: 36415; 71046; 71275; 76856; 80053; 81003; 82550; 82553; 83735; 83880; 84484; 85025; 85379; 85610; 85730; 93005; 93970; 94640; 94760; 96361; 96365; 96366; 96376; 99285

== ENCOUNTER 2018-09-29 10:48 | Emergency (ER) | payer OTHER ==
[2018-09-29 10:54] VITALS: RESP 20; TEMP 98.3
[2018-09-29] MEDS ORDERED: diphenhydrAMINE 50 MG/ML 1 ML VIAL IVP STA (11:28)
--- NOTE | 2018-09-29 11:37 | ED ---
Allergic Reaction HPI - General Chief complaint: Allergic Reaction Stated complaint: poss allergic rxn Time Seen by Provider: 09/29/18 11:11 Source: patient Mode of arrival: ambulatory Limitations: no limitations - History of Present Illness Initial Comments: This is a 33-year-old female with a history of bilateral pulmonary emboli for she is on anticoagulants who states she had recently her verapamil prescription increased from 120 mg a day to 250 mg a day additionally she had chlorthalidone added to her medication list 4 days ago she states after taking that he has some numbness and redness to her face when she woke up this morning and later get worse. She states also she has some dizziness weakness headache increased thirst since starting his medication. She states she started on medication for days ago neck states she felt slightly dizzy that that she was fine and then since that she's had these other symptoms. She has any fevers chills or sweats she has had slight cough no overt chest pain no palpitations MD Complaint: allergic reaction, facial swelling - Related Data Home Medications Medication Instructions Recorded Confirmed Montelukast [Singulair] 10 mg PO HS 08/27/15 09/29/18 Omeprazole [PriLOSEC] 20 mg PO HS 02/23/16 09/29/18 Cetirizine HCl [Zyrtec] 10 mg PO HS 07/20/18 09/29/18 Cholecalciferol [Vitamin D3] 1,000 unit PO HS 07/20/18 09/29/18 Fluticasone/Salmeterol [Airduo 2 puff INHALATION RT-BID 09/11/18 09/29/18 Respiclick 113-14 Mcg] Chlorthalidone [Hygroton] 25 mg PO HS 09/29/18 09/29/18 Verapamil Sr [Isoptin Sr] 240 mg PO HS 09/29/18 09/29/18 Previous Rx's Medication Instructions Recorded Rivaroxaban [Xarelto] 15 mg PO BID-W/MEALS #30 tab 09/14/18 Magnesium 200 mg PO DAILY #15 tablet 09/29/18 Potassium Chloride ER [K-Dur 20] 20 meq PO DAILY #15 tab 09/29/18 predniSONE 20 mg PO BID #10 tab 09/29/18 Allergies Allergy/AdvReac Type Severity Reaction Status Date / Time adhesive tape Allergy Rash/Hives Verified 09/29/18 11:35 Review of Systems ROS Statement: Those systems with pertinent positive or pertinent negative responses have been documented in the HPI. ROS Other: All systems not noted in ROS Statement are negative. Past Medical History Past Medical History: Asthma, Hypertension Additional Past Medical History / Comment(s): migraines, hypoglycemia, varicose veins History of Any Multi-Drug Resistant Organisms: None Reported Past Surgical History: Hysterectomy, Tubal Ligation Past Anesthesia/Blood Transfusion Reactions: No Reported Reaction Past Psychological History: Anxiety Smoking Status: Never smoker Past Alcohol Use History: None Reported Past Drug Use History: None Reported - Past Family History Father History Unknown: Yes Family Medical History: Hypertension, Myocardial Infarction (VT) Mother Family Medical History: Deep Vein Thrombosis (DVT), Pulmonary Embolus General Exam - General Exam Comments Initial Comments: This is a well-developed well-nourished awake alert oriented 3 female Limitations: no limitations General appearance: alert, anxious Head exam: Present: atraumatic, normocephalic, normal inspection Eye exam: Present: normal appearance, PERRL, EOMI. Absent: scleral icterus, conjunctival injection, periorbital swelling ENT exam: Present: normal exam, normal oropharynx, mucous membranes moist, other (77 reveals erythema to the face) Neck exam: Present: normal inspection. Absent: tenderness, meningismus, lymphadenopathy Respiratory exam: Present: normal lung sounds bilaterally. Absent: respiratory distress, wheezes, rales, rhonchi, stridor Cardiovascular Exam: Present: regular rate, normal rhythm, normal heart sounds. Absent: systolic murmur, diastolic murmur, rubs, gallop, clicks GI/Abdominal exam: Present: soft, normal bowel sounds. Absent: distended, tenderness, guarding, rebound, rigid Extremities exam: Present: normal inspection, full ROM, normal capillary refill. Absent: tenderness, pedal edema, joint swelling, calf tenderness Back exam: Present: normal inspection Neurological exam: Present: alert, oriented X3, CN II-XII intact Psychiatric exam: Present: normal affect, normal mood Skin exam: Present: warm, dry, intact, normal color. Absent: rash Course Vital Signs 09/29/18 09/29/18 10:52 12:30 Temperature 98.3 F Pulse Rate 93 105 H Respiratory 20 20 Rate Blood Pressure 116/84 117/82 O2 Sat by Pulse 99 99 Oximetry Medical Decision Making - Medical Decision Making I did discuss findings the patient family she is feeling improved. Patient will be discharged she is to not take the above medication and again until she contacts her physician to eat sent home on appropriate medication she was also demonstrate hypokalemia and low and magnesium levels will be placed on supplements. - Lab Data Result diagrams: 09/29/18 12:27 09/29/18 12:27 Lab Results 09/29/18 09/29/18 09/29/18 Range/Units 12:27 12: 12:27 WBC 5.0 (3.8-10.6) k/uL RBC 4.84 (3.80-5.40) m/uL Hgb 13.0 (11.4-16.0) gm/dL Hct 38.7 (34.0-46.0) % MCV 80.0 (80.0-100.0) fL MCH 26.9 (25.0-35.0) pg MCHC 33.7 (31.0-37.0) g/dL RDW 13.7 (11.5-15.5) % Plt Count 284 (150-450) k/uL Neutrophils % 66 % Lymphocytes % 25 % Monocytes % 4 % Eosinophils % 2 % Basophils % 1 % Neutrophils # 3.3 (1.3-7.7) k/uL Lymphocytes # 1.2 (1.0-4.8) k/uL Monocytes # 0.2 (0-1.0) k/uL Eosinophils # 0.1 (0-0.7) k/uL Basophils # 0.1 (0-0.2) k/uL Sodium 139 (137-145) mmol/L Potassium 3.1 L (3.5-5.1) mmol/L Chloride 102 (98-107) mmol/L Carbon Dioxide 28 (22-30) mmol/L Anion Gap 9 mmol/L BUN 16 (7-17) mg/dL Creatinine 0.75 (0.52-1.04) mg/dL Est GFR (CKD-EPI)AfAm >90 (>60 ml/min/1.73 sqM) Est GFR (CKD-EPI)NonAf >90 (>60 ml/min/1.73 sqM) Glucose 92 (74-99) mg/dL Calcium 10.1 (8.4-10.2) mg/dL Magnesium 1.9 (1.6-2.3) mg/dL Total Bilirubin 0.8 (0.2-1.3) mg/dL AST 21 (14-36) U/L ALT 30 (9-52) U/L Alkaline Phosphatase 68 (38-126) U/L Total Creatine Kinase 64 (30-135) U/L CK-MB (CK-2) 0.2 (0.0-2.4) ng/mL CK-MB (CK-2) Rel Index 0.3 Total Protein 7.8 (6.3-8.2) g/dL Albumin 4.6 (3.5-5.0) g/dL - EKG Data -: EKG Interpreted by Me EKG shows normal: sinus rhythm (Normal sinus rhythm of 81. Interval 154 QRS duration 90 QT since QTC 440/511 prolonged QT moderate voltage criteria for LVH) - Radiology Data Radiology results: report reviewed (Review the imaging and report no acute findings.), image reviewed Disposition Clinical Impression: Allergic reaction, Adverse reaction to drug, Hypokalemia Disposition: HOME SELF-CARE Condition: Good Instructions (If sedation given, give patient instructions): General Allergic Reaction (ED), Hypokalemia (ED) Prescriptions: Magnesium 200 mg PO DAILY #15 tablet Potassium Chloride ER [K-Dur 20] 20 meq PO DAILY #15 tab predniSONE 20 mg PO BID #10 tab Is patient prescribed a controlled substance at d/c from ED?: No Referrals: Beckie Elkins MD [Primary Care Provider] - 1-2 days
[2018-09-29 12:40] LABS: Basophils # (A) 0.1 k/uL (0-0.2); Basophils % (A) 1 %; Eosinophils # (A) 0.1 k/uL (0-0.7); Eosinophils % (A) 2 %; HCT 38.7 % (34.0-46.0); Lymphocytes # (A) 1.2 k/uL (1.0-4.8); Lymphocytes % (A) 25 %; MCH 26.9 pg (25.0-35.0); MCHC 33.7 g/dL (31.0-37.0); Mean Platelet Volume 6.3; Monocytes # (A) 0.2 k/uL (0-1.0); Monocytes % (A) 4 %; Neutrophils # (A) 3.3 k/uL (1.3-7.7); Neutrophils % (A) 66 %; Platelet Count 284 k/uL (150-450); RBC 4.84 m/uL (3.80-5.40); RDW 13.7 % (11.5-15.5)
[2018-09-29 12:55] LABS: ALT 30 U/L (9-52); AST 21 U/L (14-36); Albumin 4.6 g/dL (3.5-5.0); Alkaline Phosphatase 68 U/L (38-126); Anion Gap 9 mmol/L; Blood Urea Nitrogen 16 mg/dL (7-17); Calcium 10.1 mg/dL (8.4-10.2); Carbon Dioxide 28 mmol/L (22-30); Chloride 102 mmol/L (98-107); Glucose 92 mg/dL (74-99); Magnesium 1.9 mg/dL (1.6-2.3); Potassium 3.1 mmol/L (3.5-5.1); Sodium 139 mmol/L (137-145); Total Bilirubin 0.8 mg/dL (0.2-1.3); Total Protein 7.8 g/dL (6.3-8.2)
[2018-09-29 13:13] LABS: Creatine Kinase MB 0.2 ng/mL (0.0-2.4)
--- NOTE | 2018-09-29 13:30 | XR ---
EXAMINATION TYPE: XR chest 2V DATE OF EXAM: 09/29/2018 COMPARISON: 09/11/2018 HISTORY: Weakness, cough, and rash TECHNIQUE: Frontal and lateral views of the chest are obtained. FINDINGS: There is no focal air space opacity, pleural effusion, or pneumothorax seen. The cardiac silhouette size is within normal limits. The osseous structures are intact. IMPRESSION: No acute cardiopulmonary process.
[2018-09-29 14:58] VITALS: BP 122/80; PULSE 93
== END 2018-09-29 14:55 | disposition home or self-care (01) ==
LOC: EC 10:48
DX: T50.2X5A Adverse effect of carbonic-anhydrase inhibitors, benzothiadiazides and other diuretics, initial encounter (principal); E87.6 Hypokalemia; R20.0 Anesthesia of skin; R42 Dizziness and giddiness; R53.1 Weakness; R51 Headache; R05 Cough; I10 Essential (primary) hypertension; J45.909 Unspecified asthma, uncomplicated; Z79.899 Other long term (current) drug therapy; Z79.51 Long term (current) use of inhaled steroids; Z91.048 Other nonmedicinal substance allergy status
CPT/HCPCS: 36415; 71046; 80053; 82550; 82553; 83735; 85025; 93005; 96374; 99284

== ENCOUNTER → 2019-01-30 | Outpatient (CLI) | payer OTHER ==
[2019-01-30 18:15] LABS: Total Protein,CSF 44 mg/dL (12-60)
[2019-01-30 18:51] LABS: Appearance,CSF Clear; CSF Tube Number 4; Nucleated Cells, CSF 0 u/L (0-5); Red Blood Cell,CSF 1 u/L (0-10)
[2019-01-31 12:41] LABS: Immunoglobulin G 782 mg/dL (700 - 1600)
== END | disposition home or self-care (01) ==
LOC: LABWHC1 09:54
PROVIDERS: ATTEND Physician Assistant
DX: R90.89 Other abnormal findings on diagnostic imaging of central nervous system (principal)
CPT/HCPCS: 36415; 82040; 82042; 82784; 83873; 83916; 84157; 87801; 89050

== ENCOUNTER 2020-02-18 09:15 | Day surgery (SDC) | payer OTHER ==
[2020-02-13 14:42] VITALS: BMI 32.2
[~2020-02-18 09:15] MED LIST: LACTATED RINGERS 1,000 ML IV SCH
[2020-02-18 09:31] VITALS: RESP 16; TEMP 98.7
[2020-02-18] MEDS ORDERED: LIDOCAINE 1% (10MG/ML) FOR IV START INTRADERMA ONE (09:35)
[2020-02-18 09:50] LABS: Glucose,Whole Blood 94 mg/dL (75-99)
[2020-02-18] MEDS ORDERED: PROPOFOL 10 MG/ML 20 ML VIAL IV ONE (10:09)
[2020-02-18] MEDS ORDERED: MIDAZOLAM 2 MG/2 ML VIAL ONE (10:09)
[2020-02-18] MEDS ORDERED: LIDOCAINE 1% INJ 10MG/ML (20 ML MDV) ONE (10:09)
--- NOTE | 2020-02-18 10:26 | P.PCN ---
Date of Procedure: 02/18/20 Description of Procedure: BRIEF HISTORY: Patient is a 34-year-old female presenting for outpatient EGD for evaluation of GERD. He the patient has a several year history of reflux on omeprazole daily. Reports intense heartburn/epigastric pain with PPI therapy. PROCEDURE PERFORMED: Esophagogastroduodenoscopy with biopsy. PREOPERATIVE DIAGNOSIS: Were. ESTIMATED BLOOD LOSS: Minimal. IV sedation per anesthesia. PROCEDURE: After informed consent was obtained, the patient was brought into the endoscopy unit. IV sedation was administered by Anesthesia under continuous monitoring. Initially the Olympus GIF-190 video endoscope was inserted into the mouth. Esophagus intubated without any difficulty. It was gradually advanced into the stomach and duodenum and carefully examined. The bulb and the second part of the duodenum appeared normal, with biopsies taken to rule out celiac sprue. The scope at this time was withdrawn to the stomach, adequately insufflated with air, and upon careful examination, mucosa of the antrum, body, cardia and the fundus appeared normal, except for some mild punctate erythema in the antrum and body suggestive of mild gastritis with biopsies taken. The scope was then withdrawn into the esophagus. The GE junction was located at 37 cm from the incisors and appeared normal with biopsies taken. The esophagus appeared normal. There were no erosions or ulcerations seen and the patient tolerated the procedure well. IMPRESSION: 1. Mild gastritis antrum body, biopsied. 2. Biopsies of the duodenum and GE junction. RECOMMENDATIONS: The findings of this examination were discussed with the patient. Okay to resume diet. Okay to resume medications. Await pathology from biopsies. Follow up in gastroenterology clinic next week as previously scheduled for results of biopsies and further management.
[2020-02-18 10:54] VITALS: BP 142/92; PULSE 61
== END 2020-02-18 11:02 | disposition home or self-care (01) ==
LOC: ORWHC2ENDO 09:15
PROVIDERS: ATTEND Internal Medicine
DX: K29.50 Unspecified chronic gastritis without bleeding (principal); K22.8 Other specified diseases of esophagus; K21.9 Gastro-esophageal reflux disease without esophagitis; J45.909 Unspecified asthma, uncomplicated; R73.09 Other abnormal glucose; R94.31 Abnormal electrocardiogram [ECG] [EKG]; G43.909 Migraine, unspecified, not intractable, without status migrainosus; F41.9 Anxiety disorder, unspecified; E66.9 Obesity, unspecified; Z68.32 Body mass index [BMI] 32.0-32.9, adult; Z91.040 Latex allergy status; Z88.2 Allergy status to sulfonamides; Z91.09 Other allergy status, other than to drugs and biological substances; Z79.899 Other long term (current) drug therapy; Z79.82 Long term (current) use of aspirin; Z90.710 Acquired absence of both cervix and uterus; Z98.51 Tubal ligation status; Z82.49 Family history of ischemic heart disease and other diseases of the circulatory system
CPT/HCPCS: 88305; 43239; J2250; J2001; J2704

== ENCOUNTER 2021-05-09 15:34 | Emergency (ER) | payer OTHER ==
[2021-05-09] MEDS ORDERED: SODIUM CHLORIDE 0.9% 1,000 ML IV STA ×2 (16:03)
--- NOTE | 2021-05-09 16:09 | ED ---
General Adult HPI - General Stated complaint: syncope Time Seen by Provider: 05/09/21 15:49 - History of Present Illness Initial comments: Yesica is a 36yo F who the ER today by ambulance for evaluation of a near syncopal episode. Patient is currently battling COVID-19. Patient states that she is feeling unwell so she got in the hot tub. When she got out she can feel very lightheaded and strange she thought she was given a past out so she sat down. At that time EMS was called for transport to the hospital. Patient did not pass out she did not fall to ground. Patient reports she lost her sense of taste and smell on Tuesday Davida on Tuesday she's has a positive for COVID-19 headache clinic. She was not offered monoclonal antibodies. She has not been treated for COVID-19 at all. She is not vaccinated. - Related Data Home Medications Medication Instructions Recorded Confirmed Montelukast [Singulair] 10 mg PO HS 08/27/15 05/09/21 Cetirizine HCl [Zyrtec] 10 mg PO HS 07/20/18 05/09/21 Cholecalciferol [Vitamin D3 (25 2,000 unit PO HS 07/20/18 05/09/21 Mcg = 1000 Iu)] Albuterol Sulfate [Ventolin HFA] 2 puff INHALATION RT-Q4H PRN 02/13/20 05/09/21 Aspirin [Adult Low Dose Aspirin EC] 81 mg PO HS 02/13/20 05/09/21 Fluticasone Nasal Reagan [Flonase 1 spr EA NOSTRIL DAILY 02/13/20 05/09/21 Nasal Reagan] Verapamil HCl [Verapamil ER] 120 mg PO HS 02/13/20 05/09/21 Acetaminophen Tab [Tylenol Tab] 1,000 mg PO Q6HR PRN 05/09/21 05/09/21 Acetaminophen-Codeine 300-30mg 1 tab PO DAILY PRN 05/09/21 05/09/21 [Tylenol w/codeine #3] Butalb/APAP/Caff 50-325-40Mg 1 tab PO DAILY PRN 05/09/21 05/09/21 [Fioricet 50-325-40] Ibuprofen [Motrin Ib] 400 mg PO Q8H PRN 05/09/21 05/09/21 Omeprazole 40 mg PO HS 05/09/21 05/09/21 Pseudoephedrine [Sudafed] 30 mg PO Q4H PRN 05/09/21 05/09/21 Rimegepant Sulfate [Nurtec Odt] 75 mg PO DAILY PRN 05/09/21 05/09/21 Allergies Allergy/AdvReac Type Severity Reaction Status Date / Time adhesive tape Allergy Rash/Hives Verified 05/09/21 17:29 Sulfa (Sulfonamide Allergy Rash/Hives Verified 05/09/21 17:29 Antibiotics) Review of Systems ROS Statement: Those systems with pertinent positive or pertinent negative responses have been documented in the HPI. ROS Other: All systems not noted in ROS Statement are negative. Past Medical History Past Medical History: Asthma, GERD/Reflux Additional Past Medical History / Comment(s): migraines, hypoglycemia, varicose veins History of Any Multi-Drug Resistant Organisms: None Reported Past Surgical History: Hysterectomy, Tubal Ligation Past Anesthesia/Blood Transfusion Reactions: No Reported Reaction Past Psychological History: Anxiety Past Alcohol Use History: None Reported Past Drug Use History: None Reported - Past Family History Father History Unknown: Yes Family Medical History: Hypertension, Myocardial Infarction (DC) Mother Family Medical History: Deep Vein Thrombosis (DVT), Pulmonary Embolus General Exam - General Exam Comments Initial Comments: Physical Exam GENERAL: Ill appearing HENT: Normocephalic, Atraumatic. EYES: PERRL, EOMI PULMONARY: Tachypnea CARDIOVASCULAR: tachycardia Warm and well perfused extremities ABDOMEN: Non-distended SKIN: No rashes or bruising : Deferred NEUROLOGIC: Alert and oriented Normal speech MUSCULOSKELETAL: Moving all extremities with no apparent injury PSYCHIATRIC: No SI/HI Course Vital Signs 05/09/21 05/09/21 05/09/21 16:08 17:58 20:06 Temperature 98.6 F 98.4 F 101.4 F H Pulse Rate 99 100 98 Respiratory 20 22 20 Rate Blood Pressure 105/76 104/66 119/85 O2 Sat by Pulse 96 95 97 Oximetry Medical Decision Making - Medical Decision Making The patient was seen and evaluated history is obtained from the patient, 36-year-old female COVID-19 positive had an apparent syncopal episode when getting out of a hot tub today. Labs were obtained, she has by cytopenia consistent with viral infection. D-dimer is elevated consistent with COVID-19. She is not hypoxic. She is treated with IV fluids and she has a candidate for monoclonal antibody therapy which he consented to. Patient received monoclonal antibodies. She did receive antipyretics continued fever here was recommended to have continued antipyretics, hydration at home. Patient was discharged home in stable condition. - Lab Data Result diagrams: 05/09/21 17:22 05/09/21 17:22 Lab Results 05/09/21 05/09/21 05/09/21 Range/Units 17:22 17:22 17:22 WBC 3.4 L (3.8-10.6) k/uL RBC 5.01 (3.80-5.40) m/uL Hgb 14.9 (11.4-16.0) gm/dL Hct 44.2 (34.0-46.0) % MCV 88.1 (80.0-100.0) fL MCH 29.8 (25.0-35.0) pg MCHC 33.8 (31.0-37.0) g/dL RDW 12.3 (11.5-15.5) % Plt Count 139 L (150-450) k/uL MPV 7.6 Neutrophils % 82 % Lymphocytes % 12 % Monocytes % 4 % Eosinophils % 0 % Basophils % 1 % Neutrophils # 2.8 (1.3-7.7) k/uL Lymphocytes # 0.4 L (1.0-4.8) k/uL Monocytes # 0.2 (0-1.0) k/uL Eosinophils # 0.0 (0-0.7) k/uL Basophils # 0.0 (0-0.2) k/uL D-Dimer 0.62 H (<0.60) mg/L FEU Sodium 138 (137-145) mmol/L Potassium 3.5 (3.5-5.1) mmol/L Chloride 102 (98-107) mmol/L Carbon Dioxide 25 (22-30) mmol/L Anion Gap 11 mmol/L BUN 10 (7-17) mg/dL Creatinine 0.87 (0.52-1.04) mg/dL Est GFR (CKD-EPI)AfAm >90 (>60 ml/min/1.73 sqM) Est GFR (CKD-EPI)NonAf 86 (>60 ml/min/1.73 sqM) Glucose 96 (74-99) mg/dL Calcium 8.9 (8.4-10.2) mg/dL Total Bilirubin 0.5 (0.2-1.3) mg/dL AST 30 (14-36) U/L ALT 14 (4-34) U/L Alkaline Phosphatase 64 (38-126) U/L Troponin I (0.000-0.034) ng/mL Total Protein 7.5 (6.3-8.2) g/dL Albumin 4.5 (3.5-5.0) g/dL 05/09/21 Range/Units 17:22 WBC (3.8-10.6) k/uL RBC (3.80-5.40) m/uL Hgb (11.4-16.0) gm/dL Hct (34.0-46.0) % MCV (80.0-100.0) fL MCH (25.0-35.0) pg MCHC (31.0-37.0) g/dL RDW (11.5-15.5) % Plt Count (150-450) k/uL MPV Neutrophils % % Lymphocytes % % Monocytes % % Eosinophils % % Basophils % % Neutrophils # (1.3-7.7) k/uL Lymphocytes # (1.0-4.8) k/uL Monocytes # (0-1.0) k/uL Eosinophils # (0-0.7) k/uL Basophils # (0-0.2) k/uL D-Dimer (<0.60) mg/L FEU Sodium (137-145) mmol/L Potassium (3.5-5.1) mmol/L Chloride (98-107) mmol/L Carbon Dioxide (22-30) mmol/L Anion Gap mmol/L BUN (7-17) mg/dL Creatinine (0.52-1.04) mg/dL Est GFR (CKD-EPI)AfAm (>60 ml/min/1.73 sqM) Est GFR (CKD-EPI)NonAf (>60 ml/min/1.73 sqM) Glucose (74-99) mg/dL Calcium (8.4-10.2) mg/dL Total Bilirubin (0.2-1.3) mg/dL AST (14-36) U/L ALT (4-34) U/L Alkaline Phosphatase (38-126) U/L Troponin I <0.012 (0.000-0.034) ng/mL Total Protein (6.3-8.2) g/dL Albumin (3.5-5.0) g/dL Disposition Clinical Impression: COVID-19 Disposition: HOME SELF-CARE Condition: Stable Additional Instructions: Take Vitamin C, Zinc and Vitamin D (all of these are in Emergen-C or similar immune support supplement) Buy a pulse ox - monitor heart rate and oxygen levels, return to the ER for oxygen <90% Is patient prescribed a controlled substance at d/c from ED?: No Referrals: Beckie Elkins MD [Primary Care Provider] - 1-2 days
[2021-05-09 18:02] LABS: Basophils % (A) 1 %; Eosinophils % (A) 0 %; HCT 44.2 % (34.0-46.0); HGB 14.9 gm/dL (11.4-16.0); Lymphocytes # (A) 0.4 k/uL (1.0-4.8); Lymphocytes % (A) 12 %; MCH 29.8 pg (25.0-35.0); MCHC 33.8 g/dL (31.0-37.0); MCV 88.1 fL (80.0-100.0); Mean Platelet Volume 7.6; Monocytes # (A) 0.2 k/uL (0-1.0); Monocytes % (A) 4 %; Neutrophils # (A) 2.8 k/uL (1.3-7.7); Neutrophils % (A) 82 %; Platelet Count 139 k/uL (150-450); RBC 5.01 m/uL (3.80-5.40); RDW 12.3 % (11.5-15.5); WBC 3.4 k/uL (3.8-10.6)
[2021-05-09 18:26] LABS: ALT 14 U/L (4-34); AST 30 U/L (14-36); African American GFR (CKD) >90 (>60 ml/min/1.73 sqM); Albumin 4.5 g/dL (3.5-5.0); Alkaline Phosphatase 64 U/L (38-126); Anion Gap 11 mmol/L; Blood Urea Nitrogen 10 mg/dL (7-17); Calcium 8.9 mg/dL (8.4-10.2); Carbon Dioxide 25 mmol/L (22-30); Chloride 102 mmol/L (98-107); Glucose 96 mg/dL (74-99); Non-African American GFR(CKD) 86 (>60 ml/min/1.73 sqM); Potassium 3.5 mmol/L (3.5-5.1); Sodium 138 mmol/L (137-145); Total Bilirubin 0.5 mg/dL (0.2-1.3); Total Protein 7.5 g/dL (6.3-8.2)
[2021-05-09] MEDS ORDERED: CASIRIVIMAB/IMDEVIMAB (EUA) 1,200 MG in SODIUM CHLORIDE 0.9% 100 ML IVPB ONE (19:15)
[2021-05-09] MEDS ORDERED: SODIUM CHLORIDE 0.9% 50 ML IVPB ONE (19:15)
--- NOTE | 2021-05-09 19:22 | XR ---
EXAMINATION TYPE: XR chest 1V portable DATE OF EXAM: 05/09/2021 COMPARISON: 09/29/2018 HISTORY: Syncope TECHNIQUE: Single view FINDINGS: There is some mild infiltrate in the mid lung [place]. There is no heart failure. Heart size is normal. Costophrenic angles are clear. There are no hilar masses. IMPRESSION: There is minimal bilateral pulmonary infiltrates. Normal heart. Abnormalities appear new compared to old exam.
[2021-05-09 20:08] VITALS: BP 119/85; PULSE 98; RESP 20; TEMP 101.4
[2021-05-09] MEDS ORDERED: ACETAMINOPHEN TAB 325 MG TAB PO STA (20:28)
== END 2021-05-10 01:48 | disposition home or self-care (01) ==
LOC: EC 15:34
DX: U07.1 COVID-19 (principal); R55 Syncope and collapse; D75.9 Disease of blood and blood-forming organs, unspecified; J45.909 Unspecified asthma, uncomplicated; K21.9 Gastro-esophageal reflux disease without esophagitis; Z91.09 Other allergy status, other than to drugs and biological substances; Z88.2 Allergy status to sulfonamides; Z79.899 Other long term (current) drug therapy
CPT/HCPCS: 99284 ×2; 96365; 96361 ×2; 36415; 85379; 80053; 84484; 85025; 71045; M0243; Q0243

== ENCOUNTER 2021-05-13 13:08 | Emergency (ER) | payer OTHER ==
[2021-05-13 13:25] VITALS: BP 125/86
[2021-05-13] MEDS ORDERED: predniSONE 50 MG TAB PO STA (15:31)
--- NOTE | 2021-05-13 15:38 | ED ---
General Adult HPI - General Chief complaint: Chest Pain Stated complaint: covid+, increased SOB Time Seen by Provider: 05/13/21 14:36 Source: patient, RN notes reviewed, old records reviewed Mode of arrival: wheelchair Limitations: no limitations - History of Present Illness Initial comments: This is a 36 female that presents with chest tightness. She states that she was diagnosed with Covid on the and received monoclonal antibodies here in the emergency room on the of this month. She states that she was still not feeling better. she went to [facility] emergency room and they did prescribe her an inhaler and steroids. She states the inhaler makes her cough and then she has a coughing bout for 2 hours after. She denies any fevers nausea or vomiting. She states that the pain is tight like she is trying to breathe through a straw. She does have a history of asthma and GERD. -: days(s) (9) Location: chest Radiation: non-radiation Severity scale (1-10): 7 Quality: other (tight) Consistency: constant Improves with: none Worsens with: other (cough) Associated Symptoms: chest pain, cough, shortness of breath - Related Data Home Medications Medication Instructions Recorded Confirmed Montelukast [Singulair] 10 mg PO HS 08/27/15 05/13/21 Cetirizine HCl [Zyrtec] 10 mg PO HS 07/20/18 05/13/21 Cholecalciferol [Vitamin D3 (25 2,000 unit PO HS 07/20/18 05/13/21 Mcg = 1000 Iu)] Albuterol Sulfate [Ventolin HFA] 2 puff INHALATION RT-Q4H PRN 02/13/20 05/13/21 Aspirin [Adult Low Dose Aspirin EC] 81 mg PO HS 02/13/20 05/13/21 Verapamil HCl [Verapamil ER] 120 mg PO HS 02/13/20 05/13/21 Acetaminophen-Codeine 300-30mg 1 tab PO DAILY PRN 05/09/21 05/13/21 [Tylenol w/codeine #3] Butalb/APAP/Caff 50-325-40Mg 1 tab PO DAILY PRN 05/09/21 05/13/21 [Fioricet 50-325-40] Omeprazole 40 mg PO HS 05/09/21 05/13/21 Rimegepant Sulfate [Nurtec Odt] 75 mg PO DAILY PRN 05/09/21 05/13/21 Previous Rx's Medication Instructions Recorded predniSONE 50 mg PO DAILY #5 tab 05/13/21 Allergies Allergy/AdvReac Type Severity Reaction Status Date / Time adhesive tape Allergy Rash/Hives Verified 05/13/21 15:17 Sulfa (Sulfonamide Allergy Rash/Hives Verified 05/13/21 15:17 Antibiotics) Review of Systems ROS Statement: Those systems with pertinent positive or pertinent negative responses have been documented in the HPI. ROS Other: All systems not noted in ROS Statement are negative. Past Medical History Past Medical History: Asthma, GERD/Reflux Additional Past Medical History / Comment(s): migraines, hypoglycemia, varicose veins History of Any Multi-Drug Resistant Organisms: None Reported Past Surgical History: Hysterectomy, Tubal Ligation Past Anesthesia/Blood Transfusion Reactions: No Reported Reaction Past Psychological History: Anxiety Smoking Status: Never smoker Past Alcohol Use History: Rare Past Drug Use History: None Reported - Past Family History Father History Unknown: Yes Family Medical History: Hypertension, Myocardial Infarction (VT) Mother Family Medical History: Deep Vein Thrombosis (DVT), Pulmonary Embolus General Exam Limitations: no limitations General appearance: alert, in no apparent distress Head exam: Present: atraumatic, normocephalic, normal inspection Eye exam: Present: normal appearance, PERRL, EOMI. Absent: scleral icterus, conjunctival injection, periorbital swelling ENT exam: Present: normal exam, normal oropharynx Neck exam: Present: normal inspection, full ROM. Absent: tenderness, meningismus, lymphadenopathy, thyromegaly Respiratory exam: Present: rales. Absent: respiratory distress, chest wall tenderness, accessory muscle use, decreased breath sounds Cardiovascular Exam: Present: regular rate, normal rhythm, normal heart sounds. Absent: systolic murmur, diastolic murmur, rubs, gallop, clicks, JVD GI/Abdominal exam: Present: soft, normal bowel sounds. Absent: distended, tenderness, guarding, rebound, rigid Extremities exam: Present: normal inspection, full ROM, normal capillary refill. Absent: tenderness, pedal edema, joint swelling, calf tenderness Back exam: Present: full ROM. Absent: tenderness Neurological exam: Present: alert, oriented X3 Psychiatric exam: Present: normal affect, normal mood Skin exam: Present: warm, dry, intact, normal color. Absent: rash, cyanosis, diaphoretic, petechiae, pallor Course Vital Signs 05/13/21 05/13/21 05/13/21 13:22 14:25 16:05 Temperature 98.7 F 98.8 F Pulse Rate 99 79 Respiratory 20 19 19 Rate Blood Pressure 125/86 O2 Sat by Pulse 95 97 Oximetry EKG Findings - EKG Results: EKG: WNL (ventricular rate of 90, ME interval 0.150, QRS 0.80, QTC 0.447) Medical Decision Making - Medical Decision Making 36-year-old female that presents to the emergency room with complaints of difficulty in breathing. She did receive monoclonal antibodies on the of this month for Covid diagnosis on the of this month. She states that she does have history of asthma but found that the inhaler causes her to have coughing spells. Her Wells PE score is 0. Her EKG shows normal sinus rhythm. She will be directed to take vitamins C, vitamin D, zinc, and melatonin. I also advised patient to get a pulse oximeter to monitor her pulse ox to return to the emergency room if it's reading under 91% with worsening shortness of breath. case discussed with Dr. Berry. Disposition Clinical Impression: COVID-19 Disposition: HOME SELF-CARE Condition: Fair Instructions (If sedation given, give patient instructions): Coronavirus Disease 2019 (COVID-19) Additional Instructions: purchase a pulse oximeter and return to the emergency room at any worsening shortness of breath with an oxygen saturation under 91%. Take vitamin D, vitamin C, zinc and melatonin. Take prednisone as prescribed for asthma. Follow-up with the primary care doctor in 1 week. return with any new or worsening symptoms. Prescriptions: predniSONE 50 mg PO DAILY #5 tab Is patient prescribed a controlled substance at d/c from ED?: No Referrals: Beckie Elkins MD [Primary Care Provider] - 1-2 days Time of Disposition: 15:43
[2021-05-13 15:54] VITALS: RESP 19
[2021-05-13 16:06] VITALS: PULSE 79; TEMP 98.8
== END 2021-05-13 16:06 | disposition home or self-care (01) ==
LOC: EC 13:08
DX: U07.1 COVID-19 (principal); J45.909 Unspecified asthma, uncomplicated; K21.9 Gastro-esophageal reflux disease without esophagitis; F41.9 Anxiety disorder, unspecified; Z79.82 Long term (current) use of aspirin; Z88.2 Allergy status to sulfonamides; Z90.710 Acquired absence of both cervix and uterus; Z98.51 Tubal ligation status
CPT/HCPCS: 99284; J7512; 93005

== ENCOUNTER 2022-03-21 20:59 | Emergency (ER) | payer OTHER ==
[2022-03-21 21:14] VITALS: BP 157/89; PULSE 75; RESP 16; TEMP 98.2
[2022-03-21] MEDS ORDERED: DIPH,PERTUS(ACELL)TETVAC-LF 0.5 ML VIAL IM ONE (21:22)
--- NOTE | 2022-03-21 21:23 | ED ---
General Adult HPI - General Chief complaint: Wound/Laceration Stated complaint: LT finger lac Time Seen by Provider: 03/21/22 21:18 Source: patient Mode of arrival: ambulatory Limitations: no limitations - History of Present Illness Initial comments: 37-year-old female who presents to the emergency department with a chief complaint laceration. Patient states she was cutting a watermelon And accidentally cut the tip of her left index finger with a knife. She could not get it to stop bleeding so she came to the emergency department. She denies blood thinner use. Reports minimal pain. Denies numbness and tingling. Last tetanus unknown. - Related Data Home Medications Medication Instructions Recorded Confirmed Montelukast [Singulair] 10 mg PO HS 08/27/15 05/13/21 Cetirizine HCl [Zyrtec] 10 mg PO HS 07/20/18 05/13/21 Cholecalciferol [Vitamin D3 (25 2,000 unit PO HS 07/20/18 05/13/21 Mcg = 1000 Iu)] Albuterol Sulfate [Ventolin HFA] 2 puff INHALATION RT-Q4H PRN 02/13/20 05/13/21 Aspirin [Adult Low Dose Aspirin EC] 81 mg PO HS 02/13/20 05/13/21 Verapamil HCl [Verapamil ER] 120 mg PO HS 02/13/20 05/13/21 Acetaminophen-Codeine 300-30mg 1 tab PO DAILY PRN 05/09/21 05/13/21 [Tylenol w/codeine #3] Butalb/APAP/Caff 50-325-40Mg 1 tab PO DAILY PRN 05/09/21 05/13/21 [Fioricet 50-325-40] Omeprazole 40 mg PO HS 05/09/21 05/13/21 Rimegepant Sulfate [Nurtec Odt] 75 mg PO DAILY PRN 05/09/21 05/13/21 Previous Rx's Medication Instructions Recorded predniSONE 50 mg PO DAILY #5 tab 05/13/21 Allergies Allergy/AdvReac Type Severity Reaction Status Date / Time adhesive tape Allergy Rash/Hives Verified 03/21/22 21:14 Sulfa (Sulfonamide Allergy Rash/Hives Verified 03/21/22 21:14 Antibiotics) Review of Systems ROS Statement: Those systems with pertinent positive or pertinent negative responses have been documented in the HPI. ROS Other: All systems not noted in ROS Statement are negative. Past Medical History Past Medical History: Asthma, GERD/Reflux Additional Past Medical History / Comment(s): migraines, hypoglycemia, varicose veins History of Any Multi-Drug Resistant Organisms: None Reported Past Surgical History: Hysterectomy, Tubal Ligation Past Anesthesia/Blood Transfusion Reactions: No Reported Reaction Past Psychological History: Anxiety Smoking Status: Never smoker Past Alcohol Use History: Rare Past Drug Use History: None Reported - Past Family History Father History Unknown: Yes Family Medical History: Hypertension, Myocardial Infarction ([place]) Mother Family Medical History: Deep Vein Thrombosis (DVT), Pulmonary Embolus General Exam Limitations: no limitations General appearance: alert, in no apparent distress Eye exam: Present: normal appearance, PERRL, EOMI. Absent: scleral icterus, conjunctival injection, periorbital swelling Respiratory exam: Present: normal lung sounds bilaterally. Absent: respiratory distress, wheezes, rales, rhonchi, stridor Cardiovascular Exam: Present: regular rate, normal rhythm, normal heart sounds. Absent: systolic murmur, diastolic murmur, rubs, gallop, clicks Extremities exam: Present: other (Skin of very tip of left index finger caught off, approximately 1 mm, non-bleeding) Neurological exam: Present: alert, oriented X3, CN II-XII intact Psychiatric exam: Present: normal affect, normal mood Skin exam: Present: warm, dry, intact, normal color. Absent: rash Course Vital Signs 03/21/22 21:10 Temperature 98.2 F Pulse Rate 75 Respiratory 16 Rate Blood Pressure 157/89 O2 Sat by Pulse 97 Oximetry Medical Decision Making - Medical Decision Making This is a 37-year-old female who presents for laceration. Thorough history and examination were performed. Skin of very tip of left index finger cut off, approximately 1 mm, non-bleeding. There is no skin to bring together for approximation. The wound was cleaned thoroughly. No further bleeding in the emergency department. It was wrapped in dressing for continuous pressure. Tetanus updated. Wound care discussed in detail. Patient to return if she experiences any new, concerning, or worsening symptoms. Dr. Alva is my attending. Disposition Clinical Impression: Laceration Disposition: HOME SELF-CARE Condition: Good Instructions (If sedation given, give patient instructions): Laceration (ED) Additional Instructions: Keep wound clean and dry. Wash with a mild soap. Keep wound uncovered. Follow-up with primary care provider in one to 2 days. Return to the emergency department experience new, concerning, or worsening symptoms. Is patient prescribed a controlled substance at d/c from ED?: No Referrals: Beckie Elkins MD [Primary Care Provider] - 1-2 days Time of Disposition: 21:23
== END 2022-03-21 21:38 | disposition home or self-care (01) ==
LOC: EC 20:59
DX: S61.211A Laceration without foreign body of left index finger without damage to nail, initial encounter (principal); J45.909 Unspecified asthma, uncomplicated; K21.9 Gastro-esophageal reflux disease without esophagitis; Z23 Encounter for immunization; Z91.09 Other allergy status, other than to drugs and biological substances; Z88.2 Allergy status to sulfonamides; Z79.82 Long term (current) use of aspirin; Z79.899 Other long term (current) drug therapy
CPT/HCPCS: 90471; 90715; 99285

== ENCOUNTER 2022-07-14 14:23 | Emergency (ER) | payer OTHER ==
[2022-07-14 16:00] VITALS: TEMP 97.7
[2022-07-14 16:25] LABS: Basophils # (A) 0.1 k/uL (0-0.2); Basophils % (A) 1 %; Eosinophils # (A) 0.3 k/uL (0-0.7); Eosinophils % (A) 3 %; HCT 40.7 % (34.0-46.0); HGB 14.2 gm/dL (11.4-16.0); Lymphocytes # (A) 1.9 k/uL (1.0-4.8); Lymphocytes % (A) 19 %; MCH 30.1 pg (25.0-35.0); MCHC 34.8 g/dL (31.0-37.0); MCV 86.6 fL (80.0-100.0); Monocytes # (A) 0.3 k/uL (0-1.0); Monocytes % (A) 3 %; Neutrophils # (A) 7.5 k/uL (1.3-7.7); Neutrophils % (A) 73 %; Platelet Count 258 k/uL (150-450); RDW 13.1 % (11.5-15.5); WBC 10.3 k/uL (3.8-10.6)
[2022-07-14 16:32] LABS: African American GFR (CKD) >90 (>60 ml/min/1.73 sqM); Anion Gap 6 mmol/L; Blood Urea Nitrogen 12 mg/dL (7-17); Calcium 8.9 mg/dL (8.4-10.2); Carbon Dioxide 26 mmol/L (22-30); Chloride 106 mmol/L (98-107); Glucose 85 mg/dL (74-99); Non-African American GFR(CKD) >90 (>60 ml/min/1.73 sqM); Potassium 3.7 mmol/L (3.5-5.1); Sodium 138 mmol/L (137-145)
[2022-07-14 16:36] LABS: INR 0.9 (<1.2); Partial Thromboplastin Time 22.7 sec (22.0-30.0); Prothrombin Time 9.6 sec (9.0-12.0)
--- NOTE | 2022-07-14 16:42 | XR ---
EXAMINATION TYPE: XR chest 2V DATE OF EXAM: 07/14/2022 4:38 PM COMPARISON: Chest radiographs from 05/09/2021 TECHNIQUE: XR chest 2V Frontal and lateral views of the chest. CLINICAL INDICATION:Female, 37 years old with history of upper resp symptoms x 1 month; FINDINGS: Lungs/Pleura: There is no evidence of pleural effusion, focal consolidation, or pneumothorax. Pulmonary vascularity: Unremarkable. Heart/mediastinum: Cardiomediastinal silhouette is unremarkable. Musculoskeletal: No acute osseous pathology. IMPRESSION: No acute cardiopulmonary disease/process.
[2022-07-14] MEDS ORDERED: SODIUM CHLORIDE 0.9% 1,000 ML IV ONE (21:51)
[2022-07-14] MEDS ORDERED: DEXAMETHASONE SOD PHOSPHATE 10 MG/ML 1 ML VIAL IVP STA (21:52)
[2022-07-14] MEDS ORDERED: hydrOXYzine HCL 50 MG/ML 1 ML VIAL IM STA (21:52)
[2022-07-14] MEDS ORDERED: IPRATROPIUM-ALBUTEROL 3 ML NEB INHALATION STA (21:52)
--- NOTE | 2022-07-14 22:27 | ED ---
General Adult HPI - General Chief complaint: Upper Respiratory Infection Stated complaint: weakness/sob Time Seen by Provider: 07/14/22 21:27 Source: patient, RN notes reviewed Mode of arrival: ambulatory Limitations: no limitations - History of Present Illness Initial comments: This is a pleasant 37-year-old female with a history of hypertension and asthma. She presents to the emergency department today complaining of ongoing problems with postnasal drainage and congestion cough. This may going on all month according to the patient. Patient was treated with a course of amoxicillin and corticosteroids and did not improve. Patient went back to her physician and recently finished azithromycin and another course of corticosteroids with no improvement. Patient still having postnasal drainage and a cough. Tightness in her chest at times. Patient does have hypertension found be hypertensive in triage today. Patient does admit to taking [id number] combination cold remedies Patient states he was sent in by her regular physician for possible abnormal chest x-ray. Patient states that she was advised by her regular doctor to get IV antibiotics and hydration. No headache, no fever or chills, no changes in vision or hearing, no sore throat or difficulty with speech, no neck pain, no chest pain or shortness of breath, no abdominal pain, no nausea or vomiting, no changes in urination or bowel movements, no numbness or tingling, no extremity pain, no skin rashes or lesions. Past medical, surgical, social, and family history reviewed. - Related Data Home Medications Medication Instructions Recorded Confirmed Montelukast [Singulair] 10 mg PO HS 08/27/15 07/14/22 Cetirizine HCl [Zyrtec] 10 mg PO HS 07/20/18 07/14/22 Albuterol Sulfate [Ventolin HFA] 2 puff INHALATION RT-Q4H PRN 02/13/20 07/14/22 Aspirin [Adult Low Dose Aspirin EC] 81 mg PO HS 02/13/20 07/14/22 Acetaminophen-Codeine 300-30mg 1 tab PO DAILY PRN 05/09/21 07/14/22 [Tylenol w/codeine #3] Butalb/APAP/Caff 50-325-40Mg 1 tab PO DAILY PRN 05/09/21 07/14/22 [Fioricet 50-325-40] Omeprazole 40 mg PO HS 05/09/21 07/14/22 Ezetimibe [Zetia] 10 mg PO DAILY 07/14/22 07/14/22 Fluticasone Nasal [place] [Flonase 2 spray EA NOSTRIL DAILY PRN 07/14/22 07/14/22 Nasal Cook] Fluticasone Propionate 110 Mcg 2 puff INHALATION RT-BID 07/14/22 07/14/22 [Flovent 110 Mcg Inhaler] Verapamil HCl [Calan] 120 mg PO DAILY 07/14/22 07/14/22 Previous Rx's Medication Instructions Recorded Benzonatate [Tessalon Perles] 200 mg PO TID PRN #30 capsule 07/14/22 Ipratropium [place] [Atrovent Hfa] 2 puff INHALATION QID #12.9 gm 07/14/22 hydrOXYzine HCL [Atarax] 25 mg PO TID PRN #24 tab 07/14/22 Allergies Allergy/AdvReac Type Severity Reaction Status Date / Time adhesive tape Allergy Rash/Hives Verified 07/14/22 16:00 Sulfa (Sulfonamide Allergy Rash/Hives Verified 07/14/22 16:00 Antibiotics) Review of Systems ROS Statement: Those systems with pertinent positive or pertinent negative responses have been documented in the HPI. ROS Other: All systems not noted in ROS Statement are negative. Past Medical History Past Medical History: Asthma, GERD/Reflux Additional Past Medical History / Comment(s): migraines, hypoglycemia, varicose veins History of Any Multi-Drug Resistant Organisms: None Reported Past Surgical History: Hysterectomy, Tubal Ligation Past Anesthesia/Blood Transfusion Reactions: No Reported Reaction Past Psychological History: Anxiety Smoking Status: Never smoker Past Alcohol Use History: Rare Past Drug Use History: None Reported - Past Family History Father History Unknown: Yes Family Medical History: Hypertension, Myocardial Infarction ([place]) Mother Family Medical History: Deep Vein Thrombosis (DVT), Pulmonary Embolus General Exam - General Exam Comments Initial Comments: Patient hypertensive, does not appear to be ill or toxic. Capillary refill less than 2 seconds. No mottling. No respiratory distress. Limitations: no limitations General appearance: alert, in no apparent distress Head exam: Present: atraumatic, normocephalic, normal inspection Eye exam: Present: normal appearance, PERRL, EOMI. Absent: scleral icterus, conjunctival injection, periorbital swelling ENT exam: Present: normal exam, normal oropharynx, mucous membranes moist, TM's normal bilaterally, normal external ear exam, other (Patient has mucoid postnasal drainage without evidence of purulence. No tonsillar adenopathy or exudate.). Absent: mucous membranes dry Neck exam: Present: normal inspection. Absent: tenderness, meningismus, lymphadenopathy Respiratory exam: Present: normal lung sounds bilaterally, other (Dry cough noted). Absent: respiratory distress, wheezes, rales, rhonchi, stridor Cardiovascular Exam: Present: regular rate, normal rhythm, normal heart sounds. Absent: systolic murmur, diastolic murmur, rubs, gallop, clicks GI/Abdominal exam: Present: soft, normal bowel sounds. Absent: distended, tenderness, guarding, rebound, rigid Extremities exam: Present: normal inspection, full ROM, normal capillary refill. Absent: tenderness, pedal edema, joint swelling, calf tenderness Back exam: Present: normal inspection Neurological exam: Present: alert, oriented X3, CN II-XII intact Psychiatric exam: Present: normal affect, normal mood Skin exam: Present: warm, dry, intact, normal color. Absent: rash Course Vital Signs 07/14/22 07/14/22 07/14/22 15:57 22:21 22:31 Temperature 97.7 F Pulse Rate 88 89 87 Respiratory 20 Rate Blood Pressure 170/112 O2 Sat by Pulse 96 Oximetry - Reevaluation(s) Reevaluation #1: 07/14/22 23:10 Medical record is reviewed Patient in no distress at discharge. Patient is informed of results and questions answered Patient in no distress EKG Findings - EKG Comments: EKG Findings:: EKG done at 1604 and interpreted by me reveals sinus rhythm with a rate of 78, normal intervals, moderate voltage for LVH. Normal axis. No acute ST or T-wave changes. No acute pathology otherwise. Medical Decision Making - Medical Decision Making Given the patient's symptomology, I believe her symptoms are related to postnasal drainage and postnasal drip. Lungs were clear to auscultation. Patient did have a dry cough. Did not appear to be systemically ill. This was not consistent with cardiac disease. Patient did have an elevated blood pressure which may be related to the combination cold remedy she is taking as outpatient. Patient also has known hypertension. We'll have her follow-up with her regular doctor. I do not believe the patient needs IV antibiotics as her white blood cell count is normal. Chest x-ray is clear. Does not appear to be related to a bacterial infection. There is no fever. Did agree to give the patient a dose of dexamethasone and hydrate the patient as she was sent here for hydration. However the patient does not appear to have any significant dehydration. There may be some level of mild dehydration. We'll also try adding on hydroxyzine for the patient's ALLERGY symptoms. Patient was told to return to the ER for any signs or symptoms worsen. Told to return immediately if any other problems arise. All questions answered. Treatment plan discussed. Patient in agreement Every effort has been made to ensure accuracy of this dictation. However, due to the limitations of electronic medical records and dictation devices, errors in charting still occur. The case was discussed in detail with ED attending physician. Presentation, findings, treatment plan discussed in detail. After discussion with ED attending physician of the results and findings, we see no indication for antibiotics at this time. Captain Waiter/Waitress Dr. Hurtado - Lab Data Result diagrams: 07/14/22 16:04 07/14/22 16:04 Lab Results 07/14/22 07/14/22 07/14/22 Range/Units 16:01 16:04 16:04 WBC 10.3 (3.8-10.6) k/uL RBC 4.70 (3.80-5.40) m/uL Hgb 14.2 (11.4-16.0) gm/dL Hct 40.7 (34.0-46.0) % MCV 86.6 (80.0-100.0) fL MCH 30.1 (25.0-35.0) pg MCHC 34.8 (31.0-37.0) g/dL RDW 13.1 (11.5-15.5) % Plt Count 258 (150-450) k/uL MPV 7.0 Neutrophils % 73 % Lymphocytes % 19 % Monocytes % 3 % Eosinophils % 3 % Basophils % 1 % Neutrophils # 7.5 (1.3-7.7) k/uL Lymphocytes # 1.9 (1.0-4.8) k/uL Monocytes # 0.3 (0-1.0) k/uL Eosinophils # 0.3 (0-0.7) k/uL Basophils # 0.1 (0-0.2) k/uL PT 9.6 (9.0-12.0) sec INR 0.9 (<1.2) APTT 22.7 (22.0-30.0) sec D-Dimer 0.38 (<0.60) mg/L FEU Sodium (137-145) mmol/L Potassium (3.5-5.1) mmol/L Chloride (98-107) mmol/L Carbon Dioxide (22-30) mmol/L Anion Gap mmol/L BUN (7-17) mg/dL Creatinine (0.52-1.04) mg/dL Est GFR (CKD-EPI)AfAm (>60 ml/min/1.73 sqM) Est GFR (CKD-EPI)NonAf (>60 ml/min/1.73 sqM) Glucose (74-99) mg/dL Calcium (8.4-10.2) mg/dL Troponin I (0.000-0.034) ng/mL Influenza Type A (PCR) Not Detected (Not Detectd) Influenza Type B (PCR) Not Detected (Not Detectd) RSV (PCR) Not Detected (Not Detectd) SARS-CoV-2 (PCR) Not Detected (Not Detectd) 07/14/22 07/14/22 Range/Units 16:04 16:04 WBC (3.8-10.6) k/uL RBC (3.80-5.40) m/uL Hgb (11.4-16.0) gm/dL Hct (34.0-46.0) % MCV (80.0-100.0) fL MCH (25.0-35.0) pg MCHC (31.0-37.0) g/dL RDW (11.5-15.5) % Plt Count (150-450) k/uL MPV Neutrophils % % Lymphocytes % % Monocytes % % Eosinophils % % Basophils % % Neutrophils # (1.3-7.7) k/uL Lymphocytes # (1.0-4.8) k/uL Monocytes # (0-1.0) k/uL Eosinophils # (0-0.7) k/uL Basophils # (0-0.2) k/uL PT (9.0-12.0) sec INR (<1.2) APTT (22.0-30.0) sec D-Dimer (<0.60) mg/L FEU Sodium 138 (137-145) mmol/L Potassium 3.7 (3.5-5.1) mmol/L Chloride 106 (98-107) mmol/L Carbon Dioxide 26 (22-30) mmol/L Anion Gap 6 mmol/L BUN 12 (7-17) mg/dL Creatinine 0.57 (0.52-1.04) mg/dL Est GFR (CKD-EPI)AfAm >90 (>60 ml/min/1.73 sqM) Est GFR (CKD-EPI)NonAf >90 (>60 ml/min/1.73 sqM) Glucose 85 (74-99) mg/dL Calcium 8.9 (8.4-10.2) mg/dL Troponin I <0.012 (0.000-0.034) ng/mL Influenza Type A (PCR) (Not Detectd) Influenza Type B (PCR) (Not Detectd) RSV (PCR) (Not Detectd) SARS-CoV-2 (PCR) (Not Detectd) - EKG Data EKG Comments: Two-view chest x-ray interpreted by me reveals no evidence of acute pathology. I did review the radiology interpretation. - Radiology Data Radiology results: report reviewed, image reviewed Disposition Clinical Impression: Uncontrolled hypertension, Postnasal drip, Allergic rhinitis, Cough Disposition: HOME SELF-CARE Condition: Good Additional Instructions: Follow-up with your regular physician as directed. Return to the ER immediately if any symptoms worsen, new symptoms arise, or any other problems develop. We will add on ipratropium bromide to your current asthma regimen. Prescriptions: hydrOXYzine HCL [Atarax] 25 mg PO TID PRN #24 tab PRN Reason: Allergy Symptoms Ipratropium [place] [Atrovent Hfa] 2 puff INHALATION QID #12.9 gm Is patient prescribed a controlled substance at d/c from ED?: No Referrals: Beckie Elkins MD [Primary Care Provider] - 07/14/22 Time of Disposition: 23:13
[2022-07-15 00:18] VITALS: BP 150/78; PULSE 78; RESP 15
== END 2022-07-15 00:23 | disposition home or self-care (01) ==
LOC: EC 14:23
DX: I10 Essential (primary) hypertension (principal); R09.82 Postnasal drip; J45.909 Unspecified asthma, uncomplicated; K21.9 Gastro-esophageal reflux disease without esophagitis; F41.9 Anxiety disorder, unspecified; Z88.2 Allergy status to sulfonamides; Z88.8 Allergy status to other drugs, medicaments and biological substances; Z79.82 Long term (current) use of aspirin; Z79.899 Other long term (current) drug therapy; Z20.822 Contact with and (suspected) exposure to COVID-19
CPT/HCPCS: 36415; 94640; 93005; 85379; 80048; 84484; 85025; 85610; 85730; 86308; 87636; 71046; 99285; 96374; 96372; J1100; J3410

== ENCOUNTER → 2022-08-16 | Outpatient (CLI) | payer OTHER ==
--- NOTE | 2022-08-16 12:00 | CT ---
EXAMINATION TYPE: CT sinus wo con DATE OF EXAM: 08/16/2022 COMPARISON: None HISTORY: Chronic sinusitis CT DLP: 512.10 mGycm. Automated Exposure Control for Dose Reduction was Utilized. TECHNIQUE: CT scan of the sinuses is performed without contrast, axial images are obtained, coronal r eformatted images are also reviewed. FINDINGS: The paranasal sinuses demonstrate mild mucosal thickening of the visualized paranasal sinu ses. Localized thickening results in occlusion of the right ostiomeatal complex. Left ostiomeatal com plex patent. Slight nasal septal deviation. Visualized portion of mastoid air cells show no abnormal opacification . The globes are intact bilaterally. There is a 5 mm rounded hyperdensity in the region of the thir d ventricle which is been reported by prior CT scan dating back to 2012 suggestive of a colloid cyst. IMPRESSION: 1. Mild chronic pansinusitis with occlusion of the right ostiomeatal complex secondary to localized m ucosal thickening. 2. 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
== END | disposition home or self-care (01) ==
LOC: RADCTMAIN 11:02
PROVIDERS: ATTEND Internal Medicine
DX: J32.4 Chronic pansinusitis (principal); G93.89 Other specified disorders of brain; J34.89 Other specified disorders of nose and nasal sinuses
CPT/HCPCS: 70486

== ENCOUNTER 2023-07-07 01:44 | Observation (INO) | payer OTHER ==
[2023-07-07] MEDS ORDERED: NITROGLYCERIN SL TABS 0.4 MG TAB SUBLINGUAL STA (02:04)
[2023-07-07] MEDS ORDERED: SODIUM CHLORIDE 0.9% 500 ML 500 ML IV STA (02:04)
[2023-07-07] MEDS ORDERED: ASPIRIN 81 MG PO STA (02:04)
[2023-07-07] MEDS ORDERED: FAMOTIDINE 20 MG/2 ML VIAL IV STA (02:09)
[2023-07-07] MEDS ORDERED: PANTOPRAZOLE 40 MG/10 ML VIAL IVP STA (02:09)
[2023-07-07 02:45] LABS: Basophils # (A) 0.1 k/uL (0-0.2); Basophils % (A) 1 %; Eosinophils # (A) 0.2 k/uL (0-0.7); Eosinophils % (A) 3 %; HGB 14.4 gm/dL (11.4-16.0); Lymphocytes # (A) 2.2 k/uL (1.0-4.8); Lymphocytes % (A) 31 %; MCH 29.7 pg (25.0-35.0); MCHC 35.1 g/dL (31.0-37.0); MCV 84.5 fL (80.0-100.0); Mean Platelet Volume 7.4; Monocytes # (A) 0.3 k/uL (0-1.0); Monocytes % (A) 5 %; Neutrophils # (A) 4.2 k/uL (1.3-7.7); Neutrophils % (A) 59 %; Platelet Count 270 k/uL (150-450); RBC 4.86 m/uL (3.80-5.40); RDW 12.7 % (11.5-15.5); WBC 7.2 k/uL (3.8-10.6)
[2023-07-07 02:55] LABS: INR 0.9 (<1.2); Prothrombin Time 10.3 sec (10.0-12.5)
[2023-07-07 02:59] LABS: ALT 21 U/L (4-34); AST 22 U/L (14-36); African American GFR (CKD) >90 (>60 ml/min/1.73 sqM); Albumin 4.3 g/dL (3.5-5.0); Alkaline Phosphatase 56 U/L (38-126); Amylase 51 U/L (30-110); Anion Gap 12 mmol/L; Blood Urea Nitrogen 13 mg/dL (7-17); Calcium 9.3 mg/dL (8.4-10.2); Carbon Dioxide 23 mmol/L (22-30); Chloride 105 mmol/L (98-107); Glucose 129 mg/dL (74-99); Lipase 122 U/L (23-300); Magnesium 1.9 mg/dL (1.6-2.3); Non-African American GFR(CKD) >90 (>60 ml/min/1.73 sqM); Potassium 2.9 mmol/L (3.5-5.1); Sodium 140 mmol/L (137-145); Total Bilirubin 0.4 mg/dL (0.2-1.3); Total Protein 6.8 g/dL (6.3-8.2)
[2023-07-07] MEDS ORDERED: MORPHINE SULFATE 4 MG/ML SYRINGE IVP STA (03:07)
[2023-07-07] MEDS ORDERED: Potassium Replacement Protocol 1 EACH MISC MISCELLANE PRN (03:11)
[2023-07-07] MEDS: POTASSIUM CHLORIDE ER 20 MEQ TAB.ER PO SCH ×3 (03:28→05:25)
[2023-07-07] MEDS ORDERED: cloNIDine HCL 0.2 MG TAB PO STA (03:54)
--- NOTE | 2023-07-07 04:07 | ED ---
Chest Pain HPI - General Chief Complaint: Chest Pain Stated Complaint: Chest Pain, HBP Time Seen by Provider: 07/07/23 01:55 Source: patient Mode of arrival: wheelchair Limitations: no limitations - History of Present Illness Initial Comments: 38-year-old female presenting with chief complaint of chest pain. Pain is located in the center of the chest and feels a squeezing sensation. Patient also admits to elevated blood pressure. Symptoms started around 2 hours prior to arrival. Admits to palpitations and shortness of breath. Admits to nausea with no vomiting. No fevers or chills. No abdominal pain. - Related Data Home Medications Medication Instructions Recorded Confirmed Cetirizine HCl [Zyrtec] 10 mg PO HS 07/20/18 07/07/23 Albuterol Sulfate [Ventolin HFA] 2 puff INHALATION RT-TID PRN 02/13/20 07/07/23 Aspirin [Adult Low Dose Aspirin EC] 81 mg PO HS 02/13/20 07/07/23 Acetaminophen-Codeine 300-30mg 1 tab PO DAILY PRN 05/09/21 07/07/23 [Tylenol w/codeine #3] Butalb/APAP/Caff 50-325-40Mg 1 tab PO DAILY PRN 05/09/21 07/07/23 [Fioricet 50-325-40] Omeprazole 40 mg PO HS 05/09/21 07/07/23 Ezetimibe [Zetia] 10 mg PO HS 07/14/22 07/07/23 Verapamil HCl [Calan] 120 mg PO HS 07/14/22 07/07/23 Cholecalciferol (Vitamin D3) 125 mcg PO HS 07/07/23 07/07/23 [Vitamin D3 (125 MCG = 5,000 IU)] Fluticasone Propion/Salmeterol 1 puff INHALATION RT-BID 07/07/23 07/07/23 [Advair 250-50 Diskus] Rizatriptan Benzoate [Maxalt] 10 mg PO BID PRN 07/07/23 07/07/23 Allergies Allergy/AdvReac Type Severity Reaction Status Date / Time adhesive tape Allergy Rash/Hives Verified 07/07/23 11:55 Sulfa (Sulfonamide Allergy Anaphylaxis Verified 07/07/23 11:55 Antibiotics) & Face rash & swelling Review of Systems ROS Statement: Those systems with pertinent positive or pertinent negative responses have been documented in the HPI. ROS Other: All systems not noted in ROS Statement are negative. EKG Findings - EKG Comments: EKG Findings:: Sinus rhythm ventricular rate 78. SC interval 143. QRS 90. QTc 403. QTC 437. no ischemic changes Past Medical History Past Medical History: Asthma, GERD/Reflux Additional Past Medical History / Comment(s): migraines, hypoglycemia, varicose veins History of Any Multi-Drug Resistant Organisms: None Reported Past Surgical History: Hysterectomy, Tubal Ligation Past Anesthesia/Blood Transfusion Reactions: No Reported Reaction Past Psychological History: Anxiety Smoking Status: Never smoker Past Alcohol Use History: Rare Past Drug Use History: None Reported - Past Family History Father History Unknown: Yes Family Medical History: Hypertension, Myocardial Infarction (VT) Mother Family Medical History: Deep Vein Thrombosis (DVT), Pulmonary Embolus General Exam Limitations: no limitations General appearance: alert, in no apparent distress Head exam: Present: atraumatic, normocephalic, normal inspection Eye exam: Present: normal appearance, EOMI Neck exam: Present: normal inspection, full ROM Respiratory exam: Present: normal lung sounds bilaterally. Absent: respiratory distress, wheezes, rales, rhonchi, stridor Cardiovascular Exam: Present: regular rate, normal rhythm, normal heart sounds. Absent: systolic murmur, diastolic murmur, rubs, gallop, clicks Extremities exam: Absent: pedal edema Neurological exam: Present: alert, oriented X3 Psychiatric exam: Present: normal affect, normal mood Skin exam: Present: warm, dry, intact, normal color. Absent: rash Course Vital Signs 07/07/23 07/07/23 07/07/23 01:47 02:23 04:00 Temperature 98 F Pulse Rate 75 70 79 Respiratory 18 20 18 Rate Blood Pressure 176/119 165/110 156/109 O2 Sat by Pulse 98 97 Oximetry 07/07/23 05:00 Temperature Pulse Rate 66 Respiratory 18 Rate Blood Pressure 141/85 O2 Sat by Pulse 97 Oximetry Chest Pain MDM - MDM Was pt. sent in by a medical professional or institution (, PA, [employer], urgent care, hospital, or group home...) When possible be specific @ -No Did you speak to anyone other than the patient for history (EMS, parent, family, police, friend...)? What history was obtained from this source @ -No Did you review nursing and triage notes (agree or disagree)? Why? @ -I reviewed and agree with nursing and triage notes Were old charts reviewed (outside hosp., previous admission, EMS record, old EKG, old radiological studies, urgent care reports/EKG's, group home records)? Report findings @ -No old charts were reviewed Differential Diagnosis (chest pain, altered mental status, abdominal pain women, abdominal pain men, vaginal bleeding, weakness, fever, dyspnea, syncope, headac he, dizziness, GI bleed, back pain, seizure, CVA, palpatations, mental health, musculoskeletal)? @ -MDM Differential Chest Pain: Stable Angina, Unstable Angina, STEMI, NSTEMI Aortic Dissection, Pneumothorax, Musculoskeletal, Esophageal Spasm GERD, Cholecystitis, Pancreatitis, Zoster This is not meant to be an all-inclusive list. EKG interpreted by me (3pts min.). @ -As above X-rays interpreted by me (1pt min.). @ -Chest x-ray shows no acute process CT interpreted by me (1pt min.). @ -None done U/S interpreted by me (1pt. min.). @ -None done What testing was considered but not performed or refused? (CT, X-rays, U/S, labs)? Why? @ -None What meds were considered but not given or refused? Why? @ -None Did you discuss the management of the patient with other professionals (professionals i.e. , PA, [employer], lab, RT, psych nurse, social worker masters, slag production worker, teacher, planned giving officer, counter caser)? Give summary @ -I spoke with the Rosanne Hairston from [facility] hospitalist group accepted admission Was smoking cessation discussed for >3mins.? @ -No Was critical care preformed (if so, how long)? @ -No Were there social determinants of health that impacted care today? How? (Homelessness, low income, unemployed, alcoholism, drug addiction, transportation, low edu. Level, literacy, decrease access to med. care, snf, rehab)? @ -No Was there de-escalation of care discussed even if they declined (Discuss DNR or withdrawal of care, Hospice)? DNR status @ -No What co-morbidities impacted this encounter? (DM, HTN, Smoking, COPD, CAD, Cancer, CVA, ARF, Chemo, Hep., AIDS, mental health diagnosis, sleep apnea, morbid obesity)? @ -None Was patient admitted / discharged? Hospital course, mention meds given and route, prescriptions, significant lab abnormalities, going to OR and other pertinent info. @ -38-year-old female presenting with chief complaint of chest pain. Onset 2 hours prior to arrival. History and physical examination are conducted. Potassium 2.9, patient placed on potassium replacement protocol. Negative troponin. Negative chest x-ray. EKG shows sinus rhythm with no ischemic changes. After nitro, morphine, and Catapres patient was still continuing to experience pain. Patient also tells me that she recently had an abnormal result from her stress test. She will be admitted for observation and evaluation by cardiology in the morning. D-dimer is added on. Patient is agreeable with this plan. I discussed this case with my attending Dr. Small Undiagnosed new problem with uncertain prognosis? @ -No Drug Therapy requiring intensive monitoring for toxicity (Heparin, Nitro, Insulin, Cardizem)? @ -No Were any procedures done? @ -No Diagnosis/symptom? @ -Chest pain Acute, or Chronic, or Acute on Chronic? @ -Acute Uncomplicated (without systemic symptoms) or Complicated (systemic symptoms)? @ -Complicated Side effects of treatment? @ -No Exacerbation, Progression, or Severe Exacerbation? @ -No Poses a threat to life or bodily function? How? (Chest pain, [place], VT, pneumonia, PE, COPD, DKA, ARF, appy, cholecystitis, CVA, Diverticulitis, Homicidal, Suicidal, threat to staff... and all critical care pts) @ -Potential Disposition Clinical Impression: Chest pain Disposition: ADMITTED IP TO THIS HOSP Condition: Good Time of Disposition: 04:56
[2023-07-07] MEDS ORDERED: NALOXONE 0.4 MG/ML 1 ML VIAL IV PRN (05:00)
[2023-07-07] MEDS ORDERED: MORPHINE SULFATE 4 MG/ML SYRINGE IV PRN (05:00)
[2023-07-07] MEDS: SODIUM CHLORIDE 0.9% 1,000 ML IV SCH ×2 (05:29→19:35)
--- NOTE | 2023-07-07 05:51 | XR ---
EXAM: XR Chest, 2 Views CLINICAL HISTORY: ITS.REASON XR Reason: Chest Pain TECHNIQUE: Frontal and lateral views of the chest. COMPARISON: 2 views of the chest dated every 2022 IMPRESSION: 1. No acute cardiopulmonary abnormality.
--- NOTE | 2023-07-07 10:48 | P.CRDCN ---
History of Present Illness Consult date: 07/07/23 Chief complaint: Chest pain History of present illness: The patient is a very pleasant 38-year-old female patient with a past medical history significant for hypertension and dyslipidemia presented for chest discomfort evaluation. She has been experiencing intermittent episodes of chest discomfort. The discomfort is in the mid of the chest as a burning sensation. No radiation to the arms or neck or shoulders or back. Nose as stated symptoms. The discomfort is not exertionally related. She was seen recently by Dr. Hawk and she underwent a stress test and that came in to be abnormal and she is scheduled to undergo a CTA but unfortunately she ended here with increasing in the term of frequency or intensity of the chest discomfort. Workup is unremarkable. The EKG showed sinus mechanism was no significant changes. Troponin is unremarkable. D-dimer is unremarkable. Chest x-ray is unremarkable. Examination is remarkable for regular rhythm with clear breathing sounds bilaterally and no lower extremity is edema noted and soft nontender abdomen. Assessment Atypical chest discomfort Abnormal stress test Hypertension and dyslipidemia Plan I discussed with the patient the option of proceeding with coronary angiogram versus discharge home and follow-up with the CTA which is already scheduled. The patient is going to think about it at this point. Further recommendation to follow Past Medical History Past Medical History: Asthma, GERD/Reflux Additional Past Medical History / Comment(s): migraines, hypoglycemia, varicose veins History of Any Multi-Drug Resistant Organisms: None Reported Past Surgical History: Hysterectomy, Tubal Ligation Past Anesthesia/Blood Transfusion Reactions: No Reported Reaction Past Psychological History: Anxiety Smoking Status: Never smoker Past Alcohol Use History: Rare Past Drug Use History: None Reported - Past Family History Father History Unknown: Yes Family Medical History: Hypertension, Myocardial Infarction (ND) Mother Family Medical History: Deep Vein Thrombosis (DVT), Pulmonary Embolus Medications and Allergies Home Medications Medication Instructions Recorded Confirmed Type Montelukast [Singulair] 10 mg PO HS 08/27/15 07/14/22 History Cetirizine HCl [Zyrtec] 10 mg PO HS 07/20/18 07/14/22 History Albuterol Sulfate [Ventolin HFA] 2 puff INHALATION RT-Q4H PRN 02/13/20 07/14/22 History Aspirin [Adult Low Dose Aspirin EC] 81 mg PO HS 02/13/20 07/14/22 History Acetaminophen-Codeine 300-30mg 1 tab PO DAILY PRN 05/09/21 07/14/22 History [Tylenol w/codeine #3] Butalb/APAP/Caff 50-325-40Mg 1 tab PO DAILY PRN 05/09/21 07/14/22 History [Fioricet 50-325-40] Omeprazole 40 mg PO HS 05/09/21 07/14/22 History Benzonatate [Tessalon Perles] 200 mg PO TID PRN #30 capsule 07/14/22 Rx Ezetimibe [Zetia] 10 mg PO DAILY 07/14/22 07/14/22 History Fluticasone Nasal [place] [Flonase 2 spray EA NOSTRIL DAILY PRN 07/14/22 07/14/22 History Nasal [place]] Fluticasone Propionate 110 Mcg 2 puff INHALATION RT-BID 07/14/22 07/14/22 History [Flovent 110 Mcg Inhaler] Ipratropium Lerna [Atrovent Hfa] 2 puff INHALATION QID #12.9 gm 07/14/22 Rx Verapamil HCl [Calan] 120 mg PO DAILY 07/14/22 07/14/22 History hydrOXYzine HCL [Atarax] 25 mg PO TID PRN #24 tab 07/14/22 Rx Metoclopramide [Reglan] 10 mg PO TID PRN #15 tab 10/06/22 Rx Allergies Allergy/AdvReac Type Severity Reaction Status Date / Time adhesive tape Allergy Rash/Hives Verified 07/07/23 01:47 Sulfa (Sulfonamide Allergy Rash/Hives Verified 07/07/23 01:47 Antibiotics) Physical Exam Vitals: Vital Signs Temp Pulse Pulse Resp BP BP Pulse Ox 07/07/23 08:00 60 16 07/07/23 07:00 97.6 F 60 16 107/66 96 07/07/23 06:12 97.8 F 72 16 125/85 97 07/07/23 05:00 66 18 141/85 97 07/07/23 04:00 79 18 156/109 07/07/23 02:23 70 20 165/110 97 07/07/23 01:47 98 F 75 18 176/119 98 Intake and Output 07/06/23 07/07/23 07/07/23 22:59 06:59 14:59 Other: Weight 87.09 kg Results 07/07/23 02:23 07/07/23 07:31 Cardiac Enzymes 07/07/23 07/07/23 07/07/23 Range/Units 02: 02: 05:17 AST 22 (14-36) U/L Troponin I <0.012 <0.012 (0.000-0.034) ng/mL Coagulation 07/07/23 Range/Units 02:23 PT 10.3 (10.0-12.5) sec APTT 23.0 (22.0-30.0) sec CBC 07/07/23 Range/Units 02:23 WBC 7.2 (3.8-10.6) k/uL RBC 4.86 (3.80-5.40) m/uL Hgb 14.4 (11.4-16.0) gm/dL Hct 41.0 (34.0-46.0) % Plt Count 270 (150-450) k/uL Comprehensive Metabolic Panel 07/07/23 07/07/23 Range/Units 02:23 07:31 Sodium 140 (137-145) mmol/L Potassium 2.9 L 4.1 (3.5-5.1) mmol/L Chloride 105 (98-107) mmol/L Carbon Dioxide 23 (22-30) mmol/L BUN 13 (7-17) mg/dL Creatinine 0.65 (0.52-1.04) mg/dL Glucose 129 H (74-99) mg/dL Calcium 9.3 (8.4-10.2) mg/dL AST 22 (14-36) U/L ALT 21 (4-34) U/L Alkaline Phosphatase 56 (38-126) U/L Total Protein 6.8 (6.3-8.2) g/dL Albumin 4.3 (3.5-5.0) g/dL Current Medications Generic Name Dose Route Start Last Admin Trade Name Freq PRN Reason Stop Dose Admin Sodium Chloride 1,000 mls @ 75 mls/hr 07/07/23 05:00 07/07/23 05:29 Saline 0.9% IV 75 mls/hr .[id number] LAWANDA Administration Miscellaneous Information 1 each 07/07/23 03:11 Potassium Replacement Protocol 1 Each Misc MISCELLANE DAILY PRN Per Protocol Protocol Morphine Sulfate 4 mg 07/07/23 05:00 07/07/23 05:33 Morphine Sulfate 4 Mg/Ml Syringe IV 4 mg Q4HR PRN Administration Severe Pain (Scale 7 to 10) Naloxone HCl 0.2 mg 07/07/23 05:00 Naloxone 0.4 Mg/Ml 1 Ml Vial IV Q2M PRN Opioid Reversal Intake and Output 07/06/23 07/07/23 07/07/23 22:59 06:59 14:59 Other: Weight 87.09 kg 07/07/23 02:23 07/07/23 07:31
[2023-07-07] MEDS ORDERED: ASPIRIN 325 MG TAB PO STA (11:06)
[2023-07-07] MEDS ORDERED: ALPRAZolam 0.25 MG TAB PO PRN (11:06)
[2023-07-07] MEDS ORDERED: ATORVASTATIN 80 MG TAB PO STA (11:06)
[2023-07-07] MEDS ORDERED: ALPRAZolam 0.5 MG TAB PO PRN (11:06)
[2023-07-07] MEDS ORDERED: NITROGLYCERIN SL TABS 0.4 MG TAB SUBLINGUAL PRN (11:06)
--- NOTE | 2023-07-07 14:18 | P.HPIM ---
History of Present Illness H&P Date: 07/07/23 History of present illness; patient is a 38-year-old lady with past medical hist ory significant for hypertension, hyperlipidemia, asthma presented to the ER because of chest pain. Patient stated that she was all right a few hours back when she started noticing the she was having chest pain Which was central in Location, squeezing in nature, nonradiating, no aggravating or relieving factors associated with chest pain. Patient was complaining of palpitations and shortness of breath that time. Patient was complaining of nausea but no vomiting. Denies any lightheadedness or dizziness. No complaint of orthopnea or PND. No complain of swelling of feet Initial lab work done in the ER showed WBC 7.2, hemoglobin 14.4, platelet count 270, d-dimer 0.34, sodium 140, potassium 2.9, BUN 13, creatinine 0.65, glucose 129, troponin 0.012, total protein 6.8, amylase 51 EKG done in the ER when corrected 78, NH interval 143, QRS 90, no ST segment elevation or ST segment depression seen, no T-wave inversion,. p-wave Seen Chest x-ray done in the ER showed no acute cardiac process. Patient was admitted to medicine service REVIEW OF SYSTEMS: CONSTITUTIONAL: No fever, no malaise, no fatigue. HEENT: No recent visual problems or hearing problems. Denied any sore throat. CARDIOVASCULAR: Mentioned in HPI PULMONARY: As mentioned in HPI GASTROINTESTINAL: No diarrhea, no nausea, no vomiting, no abdominal pain. NEUROLOGICAL: No headaches, no weakness, no numbness. HEMATOLOGICAL: Denies any bleeding or petechiae. GENITOURINARY: Denies any burning micturition, frequency, or urgency. MUSCULOSKELETAL/RHEUMATOLOGICAL: Denies any joint pain, swelling, or any muscle pain. ENDOCRINE: Denies any polyuria or polydipsia. The rest of the 14-point review of systems is negative. PHYSICAL EXAMINATION: GENERAL: The patient is alert and oriented x3, not in any acute distress. Well developed, well nourished. HEENT: Pupils are round and equally reacting to light. EOMI. No scleral icterus. No conjunctival pallor. Normocephalic, atraumatic. No pharyngeal erythema. No thyromegaly. CARDIOVASCULAR: S1 and S2 present. No murmurs, rubs, or gallops. PULMONARY: Chest is clear to auscultation, no wheezing or crackles. ABDOMEN: Soft, nontender, nondistended, normoactive bowel sounds. No palpable organomegaly. MUSCULOSKELETAL: No joint swelling or deformity. EXTREMITIES: No cyanosis, clubbing, or pedal edema. NEUROLOGICAL: Gross neurological examination did not reveal any focal deficits. SKIN: No rashes. Assessment and plan Chest pain rule out acute coronary syndrome History of migraine Hyperlipidemia Monitor vital signs Monitor CBC Monitor CMP Continue telemetry monitoring Trend Troponins Resume home meds Consult cardiology Labs and medication were reviewed.. Continue same treatment. Continue with symptomatic treatment. Resume home medication. Monitor labs and vitals. DVT and GI prophylaxis. Further recommendations as per clinical course of the pat ient Dictation was produced using [employer] dictation software. please excuse any grammatical, word or spelling errors. Past Medical History Past Medical History: Asthma, GERD/Reflux Additional Past Medical History / Comment(s): migraines, hypoglycemia, varicose veins History of Any Multi-Drug Resistant Organisms: None Reported Past Surgical History: Hysterectomy, Tubal Ligation Past Anesthesia/Blood Transfusion Reactions: No Reported Reaction Past Psychological History: Anxiety Smoking Status: Never smoker Past Alcohol Use History: Rare Past Drug Use History: None Reported - Past Family History Father History Unknown: Yes Family Medical History: Hypertension, Myocardial Infarction (ND) Mother Family Medical History: Deep Vein Thrombosis (DVT), Pulmonary Embolus Medications and Allergies Home Medications Medication Instructions Recorded Confirmed Type Cetirizine HCl [Zyrtec] 10 mg PO HS 07/20/18 07/07/23 History Albuterol Sulfate [Ventolin HFA] 2 puff INHALATION RT-TID PRN 02/13/20 07/07/23 History Aspirin [Adult Low Dose Aspirin EC] 81 mg PO HS 02/13/20 07/07/23 History Acetaminophen-Codeine 300-30mg 1 tab PO DAILY PRN 05/09/21 07/07/23 History [Tylenol w/codeine #3] Butalb/APAP/Caff 50-325-40Mg 1 tab PO DAILY PRN 05/09/21 07/07/23 History [Fioricet 50-325-40] Omeprazole 40 mg PO HS 05/09/21 07/07/23 History Ezetimibe [Zetia] 10 mg PO HS 07/14/22 07/07/23 History Verapamil HCl [Calan] 120 mg PO HS 07/14/22 07/07/23 History Cholecalciferol (Vitamin D3) 125 mcg PO HS 07/07/23 07/07/23 History [Vitamin D3 (125 MCG = 5,000 IU)] Fluticasone Propion/Salmeterol 1 puff INHALATION RT-BID 07/07/23 07/07/23 History [Advair 250-50 Diskus] Rizatriptan Benzoate [Maxalt] 10 mg PO BID PRN 07/07/23 07/07/23 History Allergies Allergy/AdvReac Type Severity Reaction Status Date / Time adhesive tape Allergy Rash/Hives Verified 07/07/23 11:55 Sulfa (Sulfonamide Allergy Anaphylaxis Verified 07/07/23 11:55 Antibiotics) & Face rash & swelling Physical Exam Vitals: Vital Signs Temp Pulse Pulse Resp BP BP Pulse Ox 07/07/23 08:00 60 16 07/07/23 07:00 97.6 F 60 16 107/66 96 07/07/23 06:12 97.8 F 72 16 125/85 97 07/07/23 05:00 66 18 141/85 97 07/07/23 04:00 79 18 156/109 07/07/23 02:23 70 20 165/110 97 07/07/23 01:47 98 F 75 18 176/119 98 Intake and Output 07/06/23 07/07/23 07/07/23 22:59 06:59 14:59 Other: Weight 87.09 kg Results CBC & Chem 7: 07/07/23 02:23 07/07/23 07:31 Labs: Abnormal Lab Results - Last 24 Hours (Table) 07/07/23 Range/Units 02:23 Potassium 2.9 L (3.5-5.1) mmol/L Glucose 129 H (74-99) mg/dL
[2023-07-07] MEDS ORDERED: VERAPAMIL 2.5 MG/ML 2 ML AMP ONE (15:39)
[2023-07-07] MEDS ORDERED: IV FLUID CONTINUATION 1,000 ML IV ONE (15:46)
[2023-07-07] MEDS ORDERED: HEPARIN SODIUM 1,000 UN/ML (10ML VL) ONE (15:53)
[2023-07-07] MEDS ORDERED: LIDOCAINE 1% INJ 10MG/ML (5 ML VIAL-PF) SQ ONE (16:01)
[2023-07-07] MEDS ORDERED: MIDAZOLAM 2 MG/2 ML VIAL IVP ONE ×2 (16:01)
[2023-07-07] MEDS ORDERED: VERAPAMIL SYRINGE (5 MG/10 ML) INTRAARTER ONE (16:02)
[2023-07-07] MEDS ORDERED: HEPARIN SODIUM 1,000 UN/ML (10ML VL) IV ONE (16:06)
[2023-07-07] MEDS ORDERED: IOPAMIDOL-370 100ML BTL INJ ONE ×2 (16:09→16:10)
[2023-07-07] MEDS ORDERED: fentaNYL (PF) 50 MCG/1 ML VIAL IVP ONE ×2 (16:09→16:10)
[2023-07-07] MEDS ORDERED: fentaNYL (PF) 50 MCG/ML 2 ML AMP ONE (16:09)
[2023-07-07] MEDS ORDERED: RX INFO: IV CONTRAST WAS GIVEN 1 EACH MISC MISCELLANE PRN (16:15)
[2023-07-07] MEDS ORDERED: SODIUM CHLORIDE 0.9% 1,000 ML IV SCH (16:15)
--- NOTE | 2023-07-07 16:18 | P.PCN ---
Date of Procedure: 07/07/23 Operative Findings: CARDIAC CATHETERIZATION PERFORMING PHYSICIAN: Iggy Nichols MD, RPVI PROCEDURE PERFORMED: 1. Selective right and left coronary angiogram 2. Left heart catheterization 3. Ultrasound-guided access of the right radial artery INDICATION: This discomfort concerning for angina COMPLICATION: None APPROACH: Right radial artery LEVEL OF SEDATION: Moderate with a sedation length of 12 minutes PROCEDURE DESCRIPTION: After obtaining an informed consent, the patient was brought to cardiac cath lab nurse. Local anesthesia was performed using lidocaine subcutaneously. The right radial artery was cannulated using Seldinger technique, the guidewire passed easily, following that we advanced a 5-Russian sheath dilator assembly, the wire and dilator were removed and sheath was flushed. Following that, 2 mg of verapamil along with 5000 unit heparin were given. Selective right and left coronary angiogram using a 6-Russian JR4 and JL 3.5 catheters. Following that we did left heart catheterization using 6-JR4 catheter The procedure was completed there was no complication. SELECTIVE CORONARY ANGIOGRAM: The right coronary artery: Large caliber vessel and a dominant vessel appears to be angiographically normal Left main: Is angiographically normal. Bifurcates into an LCx and ramus intermedius and LAD The ramus: Is angiographically normal The left circumflex: Large caliber vessel nondominant vessel and appears to be normal. Gives rise into a small OM which appears to be normal The left anterior descending artery: Large caliber vessel and appeared to be normal and gives rises into first and second diagonals appears to be normal HEMODYNAMICS: The LVEDP was 16 mmHg was no significant gradient across aortic valve CONCLUSION: 1. Normal coronary angiogram 2. Normal left-sided filling pressure POSTPROCEDURE MANAGEMENT: Medical treatment
[2023-07-07 17:54] VITALS: TEMP 97.1
[2023-07-07 21:06] VITALS: BP 119/84; PULSE 62; RESP 16
[2023-07-08] MEDS ORDERED: HEPARIN SODIUM,PORCINE (1 ML) 2,500 UNIT in SODIUM CHLORIDE 0.9% 250 ML IRRIGATION PRN (07:00)
[2023-07-08] MEDS ORDERED: HEPARIN SODIUM,PORCINE 10,000 UNIT in SODIUM CHLORIDE 0.9% 1,000 ML IRRIGATION PRN (07:00)
== END 2023-07-07 22:10 | disposition home or self-care (01) ==
LOC: EC 01:44 → 6NMEDSUR 05:02
PROVIDERS: ADMIT Hospitalist; ATTEND Hospitalist
DX: R07.89 Other chest pain (principal); R94.39 Abnormal result of other cardiovascular function study; I10 Essential (primary) hypertension; E78.5 Hyperlipidemia, unspecified; J45.909 Unspecified asthma, uncomplicated; K21.9 Gastro-esophageal reflux disease without esophagitis; F41.9 Anxiety disorder, unspecified; Z79.82 Long term (current) use of aspirin; Z79.899 Other long term (current) drug therapy; Z88.2 Allergy status to sulfonamides
CPT/HCPCS: 96374; 96375; 99285; 36415; 93005; 93458; 76937; 85379; 80053; 82150; 83690; 83735; 84132; 84484; 85025; 85610; 85730; 71046; G0378; C1769; C1894; J2250; J2270; J2001; J3490; J1644; C9113; Q9967; J3010

== ENCOUNTER → 2023-07-15 | Outpatient (CLI) | payer OTHER ==
[2023-07-15 16:04] LABS: BUN/Creat Ratio 9.14 Ratio (12.00-20.00); Blood Urea Nitrogen 6.4 mg/dL (9.0-27.0); Calcium 9.6 mg/dL (8.7-10.3); Carbon Dioxide 26.5 mmol/L (21.6-31.8); Chloride 105 mmol/L (96-109); Glucose 95 mg/dL (70-110); Potassium 4.1 mmol/L (3.5-5.5); Sodium 142 mmol/L (135-145)
== END | disposition home or self-care (01) ==
LOC: LABWHC1 09:39
PROVIDERS: ATTEND Internal Medicine
DX: I10 Essential (primary) hypertension (principal); R07.9 Chest pain, unspecified
CPT/HCPCS: 36415; 80048; 82088; 83835; 83921; 84244

== ENCOUNTER → 2024-04-18 | Outpatient (CLI) | payer OTHER ==
--- NOTE | 2024-04-18 10:13 | US ---
EXAMINATION TYPE: US renal doppler DATE OF EXAM: 04/18/2024 COMPARISON: NONE CLINICAL INDICATION: Female, 39 years old with history of I10 HTN; uncontrollable HTN x few years pe r patient MEASUREMENTS: RENAL SIZE: Right Kidney: 10.7 x 4.9 x 4.7 cm Left Kidney: 10.3 x 5.0 x 6.4 cm Right Kidney: No hydronephrosis or lesions seen Left Kidney: No hydronephrosis or lesions seen Abd Aorta: No AAA visualized RESISTANCE INDEX Right: 0.6 Left: 0.6 RA/AO RATIO (< 3.5 ) Right: 1.4 Left: 1.4 RENAL ARTERY VELOCITY ( < 180 cm/s) Right: 149.0 cm/s Left: 142.5 cm/s IMPRESSION: No evidence for renal artery stenosis.
== END | disposition home or self-care (01) ==
LOC: RADUSWWP 09:09
PROVIDERS: ATTEND Family Medicine
DX: I10 Essential (primary) hypertension (principal)
CPT/HCPCS: 76775

== ENCOUNTER → 2024-07-24 | Outpatient (CLI) | payer OTHER ==
[2024-07-24 13:29] VITALS: BP 153/109; PULSE 74; RESP 16; TEMP 98.3
--- NOTE | 2024-07-24 14:11 | P.SLEEP ---
History of Present Illness H&P Date: 07/24/24 39-year-old female patient referred to me for concerns of sleep apnea. The patient has been feeling tired all the time. She is snoring and she has also noted that she is having episodes of apneas where she wakes up choking and gasping for air approximately once or twice every night. Her Macclesfield score is currently at 8. She has chronic fatigue and daytime sleepiness. 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 She does not take any naps. She goes to bed between 10 and 11 PM and she wakes at 5:30 AM in the morning. On weekends, she tends to sleep till 10 or 11 AM. Her sleep quality according to her is poor and she feels that she is only averaging around 4 to 5 hours of solid sleep. Her weight is down as the patient is currently losing weight and she has lost approximately 20 pounds over the past 1 year. She sleeps on her side. She is a mouth breather. No sleep paralysis. No hallucinations. No cataplexy. She has history of migraines. No nocturia. No grinding of the teeth. No anxiety or depression. She has episode s of palpitations and some shortness of breath and chest pain for which the patient has undergone a full cardiac evaluation including a cardiac catheterization that came back negative back in June 2023. Her blood pressure however remains slightly elevated. She has also history of hyperlipidemia, bronchial asthma which is currently inactive and stable and previous history of pulmonary embolism back in 2019 that followed a surgical hysterectomy and the patient was treated with anticoagulation and currently she is off anticoagulation. No head trauma. No seizure activity. No substance abu se. Her has obstructive sleep apnea yet he has declined CPAP therapy. Review of Systems Constitutional: Reports daytime sleepiness, Reports fatigue, Reports weight loss Eyes: denies as per HPI, denies blurred vision, denies bulging eye, denies decreased vision, denies diplopia, denies discharge, denies dry eye, denies irritation, denies itching, denies pain, denies photophobia, denies loss of peripheral vision, denies loss of vision, denies tunnel vision/blind spots Ears: deny: decreased hearing, ear discharge, earache, tinnitus Ears, nose, mouth and throat: Reports as per HPI Breasts: absent: as per HPI, change in shape, gynecomastia, masses, nipple discharge, pain, skin changes, swelling Cardiovascular: Reports as per HPI Respiratory: Reports as per HPI, Reports snoring Gastrointestinal: Reports as per HPI Genitourinary: Reports as per HPI Menstruation: Reports as per HPI Musculoskeletal: Reports as per HPI Musculoskeletal: absent: ankle pain, ankle stiffness, ankle swelling, as per HPI, elbow pain, elbow stiffness, elbow swelling, foot pain, foot stiffness, foot swelling, hand pain, hand stiffness, hand swelling, hip pain, hip stiffness, hip swelling, knee pain, knee stiffness, knee swelling, shoulder pain, shoulder stiffness, shoulder swelling, wrist pain, wrist stiffness, wrist swelling Integumentary: Reports as per HPI Neurological: Reports migraines Psychiatric: Reports as per HPI Endocrine: Reports as per HPI, Reports fatigue Hematologic/Lymphatic: Reports as per HPI Allergic/Immunologic: Reports as per HPI Past Medical History Past Medical History: Asthma, GERD/Reflux Additional Past Medical History / Comment(s): migraines, hypoglycemia, varicose veins History of Any Multi-Drug Resistant Organisms: None Reported Past Surgical History: Hysterectomy, Tubal Ligation Past Anesthesia/Blood Transfusion Reactions: No Reported Reaction Past Psychological History: Anxiety Smoking Status: Never smoker Past Alcohol Use History: Rare Past Drug Use History: None Reported - Past Family History Father History Unknown: Yes Family Medical History: No Reported History Mother Family Medical History: AFIB, Cancer, Coronary Artery Disease (CAD), Deep Vein Thrombosis (DVT), Pulmonary Embolus Additional Family Medical History / Comment(s): bRONCHITIS, SNORING, SINUS HEADACHESPASSED IN NOVEMBER 2023 Medications and Allergies Home Medications Medication Instructions Recorded Confirmed Type Cetirizine HCl [Zyrtec] 10 mg PO HS 07/20/18 07/24/24 History Albuterol Sulfate [Ventolin HFA] 2 puff INHALATION RT-TID PRN 02/13/20 07/07/23 History Aspirin [Adult Low Dose Aspirin EC] 81 mg PO HS 02/13/20 07/24/24 History Acetaminophen-Codeine 300-30mg 1 tab PO DAILY PRN 05/09/21 07/24/24 History [Tylenol w/codeine #3] Butalb/APAP/Caff 50-325-40Mg 1 tab PO DAILY PRN 05/09/21 07/07/23 History [Fioricet 50-325-40] Omeprazole 40 mg PO HS 05/09/21 07/24/24 History Ezetimibe [Zetia] 10 mg PO HS 07/14/22 07/24/24 History Verapamil HCl [Calan] 120 mg PO HS 07/14/22 07/07/23 History Cholecalciferol (Vitamin D3) 125 mcg PO HS 07/07/23 07/24/24 History [Vitamin D3 (125 MCG = 5,000 IU)] Fluticasone Propion/Salmeterol 1 puff INHALATION RT-BID 07/07/23 07/07/23 History [Advair 250-50 Diskus] Rizatriptan Benzoate [Maxalt] 10 mg PO BID PRN 07/07/23 07/24/24 History Fluticasone Propion/Salmeterol See Rx Instructions .ROUTE .COMPLEX 07/24/24 07/24/24 History [Advair 250-50 Diskus] Potassium Chloride [Klor-Con 20 20 meq PO BID 07/24/24 07/24/24 History Packets] hydroCHLOROthiazide 25 mg PO DAILY 07/24/24 07/24/24 History Allergies Allergy/AdvReac Type Severity Reaction Status Date / Time adhesive tape Allergy Rash/Hives Verified 07/07/23 11:55 Sulfa (Sulfonamide Allergy Anaphylaxis Verified 07/07/23 11:55 Antibiotics) & Face rash & swelling Physical Exam Vitals: Vital Signs Temp Pulse Resp BP Pulse Ox 07/24/24 13:28 98.3 F 74 16 153/109 96 Intake and Output 07/23/24 07/24/24 07/24/24 22:59 06:59 14:59 Other: Weight 83.915 kg The patient appeared well nourished and normally developed. Vital signs as documented. Head exam is unremarkable. No scleral icterus or corneal arcus noted. Neck is without jugular venous distension, thyromegaly, or carotid bruits. Carotid upstrokes are brisk bilaterally. Mallampati class IV with significant crowding of the posterior pharynx Lungs are clear to auscultation and percussion. Cardiac exam reveals the PMI to be normally sized and situated. Rhythm is regular. First and second heart sounds normal. No murmurs, rubs or gallops. Abdominal exam reveals normal bowel sounds, no masses, no organomegaly and no aortic enlargement. Extremities are nonedematous and both femoral and pedal pulses are normal. Examination of the skin revealed no evidence of significant rashes, suspicious appearing nevi or other concerning lesions. Neurologically, the patient is awake and alert and the patient does not have any focal neurological deficit. Cranial nerves are essentially intact. Assessment and Plan Plan: Chronic fatigue/hypersomnia, Macclesfield score of 8 Chronic snoring with episodes of witnessed apneas Obesity with ongoing weight loss. Current body mass index is 32.2 as the patient has lost around 20 pounds over the past 1 year. Migraines Hypertension Hyperlipidemia Moderate persistent bronchial asthma which is currently inactive and stable on Advair History of pulmonary embolism back in 2019 following a surgical hysterectomy, currently on no anticoagulants History of MTHFR gene mutation History of palpitations Normal coronaries based on a cardiac catheterization that was done 06/2023 Plan Continue efforts to lose weight Patient is related to sleep hygiene was discussed with the patient at length Maintain good sleep hygiene measures and maintain regular sleep schedule Continue current medication with special attention to a tighter blood pressure control Proceed with screening polysomnography and decide further treatment is needed should there be any significant sleep breathing disorder. Sleep Note - Sleep Data ESS Total: 8 - Sleep Note Sleep Note: Temperature: 98.3 F Pulse Rate: 74 Respiratory Rate: 16 Blood Pressure: 153/109 SpO2: 96 Height: 5 ft 3.5 in Weight: 83.915 kg BMI: Neck Circumference: 17
== END ==
LOC: 3 N SLEEP 13:02
PROVIDERS: ATTEND Internal Medicine Critical Care Medicine
DX: R06.83 Snoring (principal); R53.83 Other fatigue; E66.9 Obesity, unspecified; Z68.32 Body mass index [BMI] 32.0-32.9, adult; I10 Essential (primary) hypertension; E78.5 Hyperlipidemia, unspecified; G43.909 Migraine, unspecified, not intractable, without status migrainosus; Z86.711 Personal history of pulmonary embolism; Z90.710 Acquired absence of both cervix and uterus; Z15.89 Genetic susceptibility to other disease; Z86.79 Personal history of other diseases of the circulatory system; Z95.9 Presence of cardiac and vascular implant and graft, unspecified; Z88.2 Allergy status to sulfonamides; Z91.048 Other nonmedicinal substance allergy status; Z79.51 Long term (current) use of inhaled steroids
CPT/HCPCS: 99211

== ENCOUNTER 2024-08-26 19:50 | Outpatient (CLI) | payer OTHER ==
--- NOTE | 2024-08-28 22:26 | P.PCN ---
Date of Procedure: 08/26/24 Operative Findings: Polysomnography report Date of service is 08/26/2024 History 39-year-old female patient referred to me for concerns of sleep apnea. The patient has been feeling tired all the time. She is snoring and she has also noted that she is having episodes of apneas where she wakes up choking and gasping for air approximately once or twice every night. Her Machias score is currently at 8. She has chronic fatigue and daytime sleepiness. She is a [id number] mom and she takes care of 4 children and she feels exhausted during the day. She does not take any naps. She goes to bed between 10 and 11 PM and she wakes at 5:30 AM in the morning. On weekends, she tends to sleep till 10 or 11 AM. Her sleep quality according to her is poor and she feels that she is only averaging around 4 to 5 hours of solid sleep. Her weight is down as the patient is currently losing weight and she has lost approximately 20 pounds over the past 1 year. She sleeps on her side. She is a mouth breather. No sleep paralysis. No hallucinations. No cataplexy. She has history of migraines. No nocturia. No grinding of the teeth. No anxiety or depression. She has episodes of palpitations and some shortness of breath and chest pain for which the patient has undergone a full cardiac evaluation including a cardiac catheterization that came back negative back in June 2023. Her blood pressure however remains slightly elevated. She has also history of hyperlipidemia, bronchial asthma which is currently inactive and stable and previous history of pulmonary embolism back in 2019 that followed a surgical hysterectomy and the patient was treated with anticoagulation and currently she is off anticoagulation. No head trauma. No seizure activity. No substance abuse. Her has obstructive sleep apnea yet he has declined CPAP therapy. Pertinent physical findings The patient's weight is 185 pounds with a body mass index of 32.3 Technical description The patient was studied using a standard complex polysomnography protocol that included recording of the Lead II EKG, Central, occipital and frontal EEG, right and left outer canthus EOG, submental EMG, right and left anterior tibialis EMG, respiratory airflow by thermocouple and or pressure/flow transducer, respiratory efforts by abdominal and thoracic PVDF belts, oxygen saturation by cable oximetry. Position by observation synchronized the PSG. Equipment used: [employer]. Sleep architecture The total recording time was 425 minutes. The total sleep time was 343.5 minutes. The overall sleep efficiency was 80.8%. The wake after sleep onset time was 44.5 minutes. Latency to sleep was 36.5 minutes. The latest REM sleep was 111.5 minutes. The sleep architecture was characterized by 21.8% stage I 57.8% stage II 0% stage III and a total of 20.4% REM sleep. The total arousal index was 7.2 Respiratory analysis The respiratory analysis demonstrated total of 2 obstructive hypopneas, 0 obstructive apneas, 0 mixed apneas and the resulting AHI was 0.3. No central apneas noted. The overall respiratory arousal index was 0.2. The baseline pulse ox was 93% while awake. Lowest oxygen saturation was 84% and the patient spent less than 1 minute of the sleep time with a pulse ox of below 89%. No significant nocturnal oxygen saturation encountered Arousal events The patient had a total of 41 arousals with an index of 7.2. The respiratory arousal index was 0.2 Periodic movement activity No significant periodic limb movement activity noted Cardiac summary Average heart rate was 66 with a minimum heart rate of 60 and a maximum rate of 71 and the rhythm was sinus. Assessment Primary snoring, no evidence of any sleep breathing disorder. The patient had an AHI of 0.3. No significant nocturnal oxygen saturations. Chronic fatigue/hypersomnia, Machias score of 8 Obesity with ongoing weight loss. Current body mass index is 32.2 as the patient has lost around 20 pounds over the past 1 year. Migraines Hypertension Hyperlipidemia Moderate persistent bronchial asthma which is currently inactive and stable on Advair History of pulmonary embolism back in 2019 following a surgical hysterectomy, currently on no anticoagulants History of MTHFR gene mutation History of palpitations Normal coronaries based on a cardiac catheterization that was done 06/2023 Plan No evidence of any sleep apnea. This is a negative study. Continue efforts to lose weight Patient is related to sleep hygiene and this was discussed with the patient at length Maintain good sleep hygiene measures and maintain regular sleep schedule Continue current medication with special attention to a tighter blood pressure control Follow-up with PCP
== END 2024-08-27 05:55 | disposition home or self-care (01) ==
LOC: 3 N SLEEP 19:50
PROVIDERS: ATTEND Internal Medicine Critical Care Medicine
DX: G43.909 Migraine, unspecified, not intractable, without status migrainosus (principal); I10 Essential (primary) hypertension; E78.5 Hyperlipidemia, unspecified; J45.909 Unspecified asthma, uncomplicated; R00.2 Palpitations; I26.99 Other pulmonary embolism without acute cor pulmonale; Z88.2 Allergy status to sulfonamides; Z88.9 Allergy status to unspecified drugs, medicaments and biological substances; E66.9 Obesity, unspecified
CPT/HCPCS: 95810